=== PATIENT | male | born 1995 | race Caucasian/White ===

== ENCOUNTER 2016-05-04 15:51 | Emergency (ER) | payer BC ==
[2016-05-04 16:03] VITALS: BP 134/80; PULSE 96; RESP 17; TEMP 99.1
--- NOTE | 2016-05-04 16:29 | ED ---
General Adult HPI - General Chief complaint: ENT Stated complaint: Throat Pain Time Seen by Provider: 05/04/16 16:07 Source: patient, RN notes reviewed Mode of arrival: ambulatory Limitations: no limitations - History of Present Illness Initial comments: This is a 20-year-old male presents with a sore throat that started last Tuesday. Patient states he also had a fever of approximately 101 last Tuesday but he has never had a fever again. Patient also reports headache, mild dry cough and some sinus congestion. Patient did receive a flu shot this year. Patient denies any sick contacts. Patient states he has had mild diarrhea since last Tuesday with some improvement. Patient denies any nausea or vomiting. Patient denies any recent shortness breath, chest pain, abdominal pain, back pain, numbness, tingling, hematuria, or visual changes, or any other complaints. - Related Data Previous Rx's Medication Instructions Recorded Benzonatate [Tessalon Perles] 100 mg PO TID 3 Days 05/04/16 Allergies Allergy/AdvReac Type Severity Reaction Status Date / Time No Known Allergies Allergy Verified 05/04/16 16:20 Review of Systems ROS Statement: Those systems with pertinent positive or pertinent negative responses have been documented in the HPI. ROS Other: All systems not noted in ROS Statement are negative. Past Medical History Past Medical History: No Reported History History of Any Multi-Drug Resistant Organisms: None Reported Past Surgical History: No Surgical Hx Reported Past Psychological History: No Psychological Hx Reported Smoking Status: Never smoker Past Alcohol Use History: Occasional Past Drug Use History: None Reported General Exam - General Exam Comments Initial Comments: General: The patient is awake and alert, in no distress, and does not appear acutely ill. Eye: Pupils are equal, round and reactive to light, extra-ocular movements are intact. No nystagmus. There is normal conjunctiva bilaterally. No signs of icterus. Ears: TMs pink and pearly with intact cone of light bilaterally. Normal external ear canals Nose: Nasal turbinates pink and moist Mouth and throat: Erythema to the posterior pharynx, no tonsillar enlargement. There are moist mucous membranes and no oral lesions. Neck: The neck is supple, there is no tenderness or JVD. Cardiovascular: There is a regular rate and rhythm. No murmur, rub or gallop is appreciated. Respiratory: Lungs are clear to auscultation, respirations are non-labored, breath sounds are equal. No wheezes, stridor, rales, or rhonchi. Musculoskeletal: Normal ROM, no tenderness. Strength 5/5. Sensation intact. Radial pulses equal bilaterally 2+. Neurological: A&O x 3. CN II-XII intact, There are no obvious motor or sensory deficits. Coordination appears grossly intact. Speech is normal. Skin: Skin is warm and dry and no rashes or lesions are noted. Psychiatric: Cooperative, appropriate mood & affect, normal judgment. Limitations: no limitations Course Vital Signs 05/04/16 16:01 Temperature 99.1 F Pulse Rate 96 Respiratory 17 Rate Blood Pressure 134/80 O2 Sat by Pulse 99 Oximetry Medical Decision Making - Medical Decision Making This is a 20-year-old male presents with sore throat since last Tuesday. On physical exam patient is afebrile in the EC. There is erythema posterior pharynx show enlargement or exudates. Lungs are clear to auscultation bilaterally. A rapid strep was done and read and reviewed and came back negative. Chest x-ray was done and reviewed showing: Normal chest. Reported by Dr. Marrero. I discussed viral pharyngitis with the patient. Patient is afebrile in the EC. Patient states it hurts when he coughs. Patient was given a prescription for Tessalon Perles. I discussed the patient should drink plenty fluids and use [id number] decongestants. Discussed return parameters.Discussed that patient should follow up with PCP in one to 2 days or return to the EC for any worsening symptoms or for any further concerns. Patient was receptive to this plan and patient will be discharged home. - Lab Data Lab Results 05/04/16 Range/Units 16:06 Group A Strep Rapid Negative (Negative) Disposition Clinical Impression: Viral pharyngitis Disposition: HOME SELF-CARE Condition: Good Instructions: Pharyngitis (ED) Additional Instructions: Please use [id number] decongestants. Please use Tessalon Perles as prescribed. Please be sure to drink plenty of fluids. Please use Tylenol or Motrin for any pain or fever symptoms. Please follow-up with family doctor in the next 2 days of symptoms have not improved. Please return to emergency room if the symptoms increase or worsen or for any other concerns. Prescriptions: Benzonatate [Tessalon Perles] 100 mg PO TID 3 Days Referrals: Prosper Lopez MD [Primary Care Provider] - 1-2 days
--- NOTE | 2016-05-04 17:28 | XR ---
EXAMINATION TYPE: XR chest 2V DATE OF EXAM: 05/04/2016 5:15 PM COMPARISON: NONE HISTORY: Sore throat TECHNIQUE: Frontal and lateral views of the chest are obtained. FINDINGS: Heart and mediastinum are normal. Lungs are clear. Diaphragm is normal. Bony thorax and so ft tissues appear normal. IMPRESSION: Normal chest.
== END 2016-05-04 17:30 | disposition home or self-care (01) ==
LOC: EC 15:51
DX: J02.9 Acute pharyngitis, unspecified (principal)
CPT/HCPCS: 71020; 87081; 87430; 99283

== ENCOUNTER 2017-10-28 23:26 | Emergency (ER) | payer BC ==
[2017-10-28 23:30] VITALS: BP 134/65; PULSE 89; RESP 18; TEMP 98
[2017-10-28] MEDS ORDERED: PROPARACAINE 0.5% OPHTH DROPS 15 ML BTL BOTH EYES STA (23:49)
[2017-10-29] MEDS ORDERED: ERYTHROMYCIN 5 MG/GM OPHTH OINT 3.5 GM TUBE LEFT EYE STA (00:10)
--- NOTE | 2017-10-29 00:12 | ED ---
General Adult HPI - General Source: patient, RN notes reviewed Mode of arrival: ambulatory Limitations: no limitations <Mauro Rizo P - Last Filed: 10/29/17 01:35> <Jeni Mcqueen P - Last Filed: 10/30/17 05:04> - General Chief complaint: Eye Problems Stated complaint: Eye injury Time Seen by Provider: 10/28/17 23:42 - History of Present Illness Initial comments: 22-year-old male presents to the emergency department for a chief complaint of left eye pain 2 hours. Patient states he was cutting wood to clear a path for hunting when a branch hit him in the left eye. Patient denies any pain around the eye but states it feels like it is scratched her as if there is a foreign body. Patient states his tetanus is up to date. Patient denies any visual changes. Patient denies any pain with movement of the eye.Patient has no other complaints at this time including shortness of breath, chest pain, abdominal pain, nausea or vomiting, headache, or visual changes. (Mauro Rizo) - Related Data Previous Rx's Medication Instructions Recorded Ciprofloxacin Ophth Oint [Ciloxan 1 applic BOTH EYES Q8H 7 Days gm 10/29/17 0.3% Ophth Oint] Erythromycin Ophth Oint [Romycin 1 applic LEFT EYE QID 7 Days gm 10/29/17 Ophth Oint] Allergies Allergy/AdvReac Type Severity Reaction Status Date / Time No Known Allergies Allergy Verified 10/28/17 23:46 Review of Systems ROS Other: All systems not noted in ROS Statement are negative. <Mauro Rizo P - Last Filed: 10/29/17 01:35> ROS Other: All systems not noted in ROS Statement are negative. <Jeni Mcqueen P - Last Filed: 10/30/17 05:04> ROS Statement: Those systems with pertinent positive or pertinent negative responses have been documented in the HPI. Past Medical History Past Medical History: No Reported History History of Any Multi-Drug Resistant Organisms: None Reported Past Surgical History: No Surgical Hx Reported Past Psychological History: No Psychological Hx Reported Smoking Status: Light tobacco smoker Past Alcohol Use History: Occasional Past Drug Use History: None Reported <Mauro Rizo P - Last Filed: 10/29/17 01:35> General Exam Limitations: no limitations General appearance: alert, in no apparent distress Head exam: Present: atraumatic, normocephalic, normal inspection Eye exam: Present: PERRL, EOMI (No pain with movement), conjunctival injection ( Conjunctiva erythematous on the left eye), other (There is a small corneal abrasion at 5:00 in the left cornea visualized with Wood's lamp and fluorescein stain. No foreign bodies noted in the cornea. Negative Israel sign. Both eyelids were flipped and no foreign bodies noted within the eyelids.). Absent: scleral icterus, nystagmus, periorbital swelling, periorbital tenderness (No tenderness to the orbit, no signs of external trauma such as ecchymosis or step- off) Expanded Eyelids: Normal Inspection: Bilateral Pupils: Regular, Round: Bilateral Sclera/Conjunctival: Normal Inspection: Right, Injection: Left (erythematous) Anterior chamber: Normal Inspection: Bilateral <Mauro Rizo P - Last Filed: 10/29/17 01:35> Vital Signs 10/28/17 23:28 Temperature 98 F Pulse Rate 89 Respiratory 18 Rate Blood Pressure 134/65 O2 Sat by Pulse 99 Oximetry Medical Decision Making <Mauro Rizo P - Last Filed: 10/29/17 01:35> <Jeni Mcqueen P - Last Filed: 10/30/17 05:04> - Medical Decision Making 22-year-old male with left eye pain after a branch hit him in the eye when he was cutting wood 2 hours ago. On exam no pain with extraocular movements. No tenderness to the orbit. Conjunctiva does appear erythematous on the left side. Eye was numbed with proparacaine and stained with fluorescein stain. Wood's lamp was used to visualize the cornea. There is a small corneal abrasion noted at 5:00 in the left cornea. No evidence of foreign body with thorough inspection of the cornea and eyelids. Tetanus is up-to-date. Patient will be treated with Cipro eyedrops as he was hit with an organic object to cover pseudomonas. Patient will follow up with ophthalmology in one to 2 days. He will return to the emergency department if he has any worsening symptoms. Eye drop was switched to Cipro after erythromycin ordered from pharmacy. Patient aware to use erythromycin tonight and then swich to Cipro tomorrow after filling prescription. Aware to follow instructions on prescription. ( Mauro Rizo) I was available for consultation in the emergency department. The history and physical exam were done by the midlevel provider. I was consulted for this patient's care. I reviewed the case with the midlevel provider and based on their presentation of the patient, I agree with the assessment, medical decision making and plan of care as documented. (Jeni Mcqueen) Disposition Is patient prescribed a controlled substance at d/c from ED?: No Time of Disposition: 00:11 <Mauro Rizo - Last Filed: 10/29/17 01:35> <Jeni Mcqueen - Last Filed: 10/30/17 05:04> Clinical Impression: Corneal abrasion, left Disposition: HOME SELF-CARE Condition: Good Instructions: Corneal Abrasion (ED) Additional Instructions: Please apply ointment every 4-6 hours to the left eye for 7 days. Please follow -up with ophthalmology in one to 2 days. Return if you have any worsening symptoms. Prescriptions: Ciprofloxacin Ophth Oint [Ciloxan 0.3% Ophth Oint] 1 applic BOTH EYES Q8H 7 Days gm Erythromycin Ophth Oint [Romycin Ophth Oint] 1 applic LEFT EYE QID 7 Days gm Referrals: Prosper Lopez MD [Primary Care Provider] - 1-2 days Mohamud Finn MD [STAFF PHYSICIAN] - 1-2 days
== END 2017-10-29 00:38 | disposition home or self-care (01) ==
LOC: EC 23:26
DX: S05.02XA Injury of conjunctiva and corneal abrasion without foreign body, left eye, initial encounter (principal); F17.200 Nicotine dependence, unspecified, uncomplicated; W22.8XXA Striking against or struck by other objects, initial encounter; Y93.89 Activity, other specified; Y92.89 Other specified places as the place of occurrence of the external cause
CPT/HCPCS: 99283

== ENCOUNTER 2023-03-18 20:30 | Emergency (ER) | payer BC ==
[2023-03-18 20:58] VITALS: TEMP 98
[2023-03-18] MEDS ORDERED: HYDROmorphone 1 MG/ML 1 ML SYRINGE IM STA (21:23)
--- NOTE | 2023-03-18 21:30 | ED ---
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 Patient stated the headache after fall follow-up for discharge of severe left hip pain and inability to ablate. Patient did not his head has no other complaints of pain just in the left hip patient's pain is severe (Louie Dallas) - Related Data Previous Rx's Medication Instructions Recorded Ciprofloxacin Ophth Oint [Ciloxan 1 applic BOTH EYES Q8H 7 Days gm 10/29/17 0.3% Ophth Oint] Erythromycin Ophth Oint [Romycin 1 applic LEFT EYE QID 7 Days gm 10/29/17 Ophth Oint] Lidocaine 5% Patch [Lidoderm 5% 1 patch TOPICAL DAILY PRN 14 Days 03/19/23 Patch] #14 patch Allergies Allergy/AdvReac Type Severity Reaction Status Date / Time No Known Allergies Allergy Verified 03/18/23 20:47 Review of Systems ROS Other: All systems not noted in ROS Statement are negative. <Louie Dallas - Last Filed: 03/18/23 23:21> ROS Other: All systems not noted in ROS Statement are negative. <bS Medina - Last Filed: 03/19/23 00:21> ROS Statement: Those systems with pertinent positive or pertinent negative responses have been documented in the HPI. Past Medical History Past Medical History: No Reported History History of Any Multi-Drug Resistant Organisms: None Reported Past Surgical History: No Surgical Hx Reported Past Psychological History: No Psychological Hx Reported Smoking Status: Current every day smoker, Vaper Past Alcohol Use History: Occasional Past Drug Use History: Marijuana <JasmynleanaLouie - Last Filed: 03/18/23 23:21> General Exam Limitations: no limitations General appearance: anxious Head exam: Present: atraumatic, normocephalic, normal inspection Eye exam: Present: normal appearance, PERRL, EOMI. Absent: scleral icterus, conjunctival injection, periorbital swelling ENT exam: Present: normal exam, mucous membranes moist Neck exam: Present: normal inspection. Absent: tenderness, meningismus, lymphadenopathy Respiratory exam: Present: normal lung sounds bilaterally. Absent: respiratory distress, wheezes, rales, rhonchi, stridor Cardiovascular Exam: Present: regular rate, normal rhythm, normal heart sounds. Absent: systolic murmur, diastolic murmur, rubs, gallop, clicks GI/Abdominal exam: Present: soft, normal bowel sounds. Absent: distended, tenderness, guarding, rebound, rigid Extremities exam: Present: normal inspection, full ROM, normal capillary refill. Absent: tenderness, pedal edema, joint swelling, calf tenderness Back exam: Present: normal inspection Neurological exam: Present: alert, oriented X3, CN II-XII intact Psychiatric exam: Present: normal affect, normal mood Skin exam: Present: warm, dry, intact, normal color. Absent: rash <CelenaLouie Kiki - Last Filed: 03/18/23 23:21> Course <JasmynleanaLouie - Last Filed: 03/18/23 23:21> Vital Signs 03/18/23 20:40 Temperature 98.0 F Pulse Rate 156 H Respiratory 22 Rate Blood Pressure 160/100 O2 Sat by Pulse 99 Oximetry - Reevaluation(s) Reevaluation #4: 03/18/23 23:21 Was pt. sent in by a medical professional or institution (, PA, CHAIN REPAIRER, urgent care, hospital, or shelter...) When possible be specific @ -no Did you speak to anyone other than the patient for history (EMS, parent, family, police, friend...)? What history was obtained from this source @ -no Did you review nursing and triage notes (agree or disagree)? Why? @ -agree Are old charts reviewed (outside hosp., previous admission, EMS record, old EKG, old radiological studies, urgent care reports/EKG's, shelter records)? Report findings @ -yes Differential Diagnosis (chest pain, altered mental status, abdominal pain women, abdominal pain men, vaginal bleeding, weakness, fever, dyspnea, syncope, headache, dizziness, GI bleed, back pain, seizure, CVA, palpatations, mental health, musculoskeletal)? @ -prior EKG interpreted by me (3pts min.). @ -yes X-rays interpreted by me (1pt min.). @ -yes CT interpreted by me (1pt min.). @ -no U/S interpreted by me (1pt. min.). @ -no What testing was considered but not performed or refused? (CT, X-rays, U/S, labs)? Why? @ -none What meds were considered but not given or refused? Why? @ -none Did you discuss the management of the patient with other professionals (professionals i.e. , PA, CHAIN REPAIRER, lab, RT, psych nurse, secondary social studies teacher, web communications specialist, teacher, community reinvestment act officer, comp field case manager)? Give summary @ -no Was smoking cessation discussed for >3mins.? @ -no Was critical care preformed (if so, how long)? @ -no Were there social determinants of health that impacted care today? How? (Homelessness, low income, unemployed, alcoholism, drug addiction, transportation, low edu. Level, literacy, decrease access to med. care, care home, rehab)? @ -none Was there de-escalation of care discussed even if they declined (Discuss DNR or withdrawal of care, Hospice)? DNR status @ -no What co-morbidities impacted this encounter? (DM, HTN, Smoking, COPD, CAD, Cancer, CVA, ARF, Chemo, Hep., AIDS, mental health diagnosis, sleep apnea, morbid obesity)? @ -none Was patient admitted / discharged? Hospital course, mention meds given and route, prescriptions, significant lab abnormalities, going to OR and other pertinent info. @ - Undiagnosed new problem with uncertain prognosis? @ -no Drug Therapy requiring intensive monitoring for toxicity (Heparin, Nitro, Insulin, Cardizem)? @ -no Were any procedures done? @ -no Diagnosis/symptom? @ - Acute, or Chronic, or Acute on Chronic? @ -Acute Uncomplicated (without systemic symptoms) or Complicated (systemic symptoms)? @ -Complicated Side effects of treatment? @ -no Exacerbation, Progression, or Severe Exacerbation? @ -exacerbation Poses a threat to life or bodily function? How? (Chest pain, [place], NC, pneumonia, PE, COPD, DKA, ARF, appy, cholecystitis, CVA, Diverticulitis, Homicidal, Suicidal, threat to staff... and all critical care pts) @ -yes (Louie Dallas) Medical Decision Making <Sb Medina - Last Filed: 03/19/23 00:21> - Medical Decision Making Patient signed out to me pending results of CT imaging. Briefly, patient is a 27-year-old male presents complaining of left hip pain after a fall. Fell down multiple stairs and slid. Is having pain radiating from his left hip up to his low back. X-rays were negative however CT imaging was obtained to rule out any missed fracture. Neurovascular is intact throughout. His no other acute complaints or injuries. Denies hitting his head or loss consciousness. X-rays were interpreted by the prior physician. Pelvis CT was interpreted by myself as showing no obvious acute fracture or injury of the left hip. I did update the patient. Pain is improved. We will discharge at this time with instructions to follow up with PCP and orthopedic. He was in agreement th is plan. Already has crutches. I will provide the patient with a prescription for lidocaine patches. I instructed the patient to follow up with their PCP in the next 1-3 days. I provided contact information for follow up with orthopedics. I explained that the patient should return to the emergency department if they experience any worsening symptoms. Strict return precautions were discussed with the patient. The patient expressed understanding of these instructions. I answered all questions that the patient had. The patient was discharged home in good condition with their prescriptions and follow up information. Diagnosis/symptom? @ -Fall, left hip strain Acute, or Chronic, or Acute on Chronic? @ -Acute Uncomplicated (without systemic symptoms) or Complicated (systemic symptoms)? @ -Uncomplicated Side effects of treatment? @ -none Exacerbation, Progression, or Severe Exacerbation] @ -no Poses a threat to life or bodily function? @ -no (Sb Medina) Disposition <Louie Dallas - Last Filed: 03/18/23 23:21> Is patient prescribed a controlled substance at d/c from ED?: No Time of Disposition: 23:59 <Sb Medina - Last Filed: 03/19/23 00:21> Clinical Impression: Fall, Strain of hip Disposition: HOME SELF-CARE Condition: Good Instructions (If sedation given, give patient instructions): Muscle Strain (E D), Fall Prevention (ED) Prescriptions: Lidocaine 5% Patch [Lidoderm 5% Patch] 1 patch TOPICAL DAILY PRN 14 Days #14 patch PRN Reason: Pain Referrals: Chandu Murphy Jr, DO [Primary Care Provider] - 1-2 days Sami Breaux DO [Doctor of Osteopathic Medicine] - 1-2 days
--- NOTE | 2023-03-18 21:45 | XR ---
EXAMINATION TYPE: XR Hip LT and AP Pelvis DATE OF EXAM: 03/18/2023 COMPARISON: None HISTORY: Fall, pain TECHNIQUE: AP pelvis and two-view left hip FINDINGS: Femoral heads articular with the acetabulum. Symphysis pubis and sacroiliac joints are norm al. No acute fracture or dislocations are evident. IMPRESSION: 1. No acute osseous abnormality left hip
--- NOTE | 2023-03-18 23:54 | CT ---
EXAMINATION TYPE: CT pelvis wo con DATE OF EXAM: 03/18/2023 COMPARISON: Pelvic and left hip x-ray earlier today. CT abdomen and pelvis February 02, 2010 HISTORY: Fell down the stairs, left hip pain CT DLP: 412.5 mGycm Automated exposure control for dose reduction was used. FINDINGS: No acute fracture or dislocation in the pelvis or left hip. Os acetabuli on the right is seen. Hip celeste int spaces are symmetric and maintained. Pubic symphysis is intact. Sacroiliac joints appear within n ormal limits. No suspicious free fluid in the pelvis. Incidental normal-appearing appendix in the right lower quadr ant. Urinary bladder appears unremarkable. No suspicious groin hernia or adenopathy. Muscle bulk in t he bilateral thighs is symmetric and felt within normal limits IMPRESSION: No acute displaced fracture in the pelvis or left hip.
[2023-03-19] MEDS ORDERED: LIDOCAINE 4% PATCH TOPICAL STA (00:10)
[2023-03-19] MEDS ORDERED: HYDROmorphone 0.5 MG/0.5 ML SYRINGE IM STA (00:10)
[2023-03-19] MEDS ORDERED: ACET/COD 300 MG/30 MG STARTER PACK 6 TAB BTL PO STA (00:11)
[2023-03-19 00:46] VITALS: BP 87/54; PULSE 97; RESP 16
== END 2023-03-19 00:52 | disposition home or self-care (01) ==
LOC: EC 20:30
DX: S76.012A Strain of muscle, fascia and tendon of left hip, initial encounter (principal); F17.290 Nicotine dependence, other tobacco product, uncomplicated; F12.90 Cannabis use, unspecified, uncomplicated; W01.0XXA Fall on same level from slipping, tripping and stumbling without subsequent striking against object, initial encounter
CPT/HCPCS: 73502; 72192; 99284; 96372 ×2; J1170

== ENCOUNTER → 2023-03-24 | Outpatient (CLI) | payer BC ==
--- NOTE | 2023-03-24 14:10 | XR ---
EXAMINATION TYPE: XR sacrum coccyx DATE OF EXAM: 03/24/2023 COMPARISON: CT pelvis 6 days ago HISTORY: Fall TECHNIQUE: 2 views of sacrum and coccyx are obtained FINDINGS: No acute displaced sacral or coccygeal fracture. A few overlying left-sided pelvic phleboli ths are redemonstrated. IMPRESSION: As above.
--- NOTE | 2023-03-24 14:12 | XR ---
EXAMINATION TYPE: XR lumbar spine with bend/flex DATE OF EXAM: 03/24/2023 CLINICAL HISTORY: Acute low back pain TECHNIQUE: Frontal, lateral, flexion and extension lateral, and oblique images of the lumbar spine ar e obtained. COMPARISON: Prior x-ray July 30, 2009 FINDINGS: There are 5 lumbar type vertebral bodies redemonstrated. The lumbar spine shows stable an d satisfactory alignment without evidence of acute fracture or dislocation. Vertebral body heights an d disk space heights are within normal limits. Dynamic imaging shows no significant subluxation. The oblique images appear within normal limits. The overlying soft tissue appears unremarkable. IMPRESSION: Unremarkable study.
== END | disposition home or self-care (01) ==
LOC: RADXRMAIN 13:12
PROVIDERS: ATTEND Family Medicine
DX: M54.50 Low back pain, unspecified (principal); M53.3 Sacrococcygeal disorders, not elsewhere classified
CPT/HCPCS: 72114; 72220

== ENCOUNTER 2023-11-11 20:46 | Emergency (ER) | payer BC ==
[2023-11-11 20:52] VITALS: TEMP 97.6
--- NOTE | 2023-11-11 21:35 | ED ---
Extremity Problem HPI - General Chief complaint: Extremity Problem,Nontraumatic Stated complaint: R Leg Pain-Sent from urgentcare Time Seen by Provider: 11/11/23 20:54 Source: patient, RN notes reviewed Mode of arrival: wheelchair Limitations: no limitations - History of Present Illness Initial comments: This is a 28-year-old male who presents to the emergency department for right leg pain. States that over the last 5 days he has had increasing pain to the right calf. He has noticed it swell up on him occasionally and become more red. Pain is worse with movement and to the touch. States that the back of his leg also feels fairly firm. Denies any injuries aside from a trip over his dog 3 weeks ago, but states that he does not know if it is related. He initially went to urgent care but was advised to come to the emergency department to have an ultrasound to evaluate for possible DVT. Denies any history of blood clots. Denies any chest pain or shortness of breath. MD Complaint: extremity pain, extremity swelling - Related Data Previous Rx's Medication Instructions Recorded Ciprofloxacin Ophth Oint [Ciloxan 1 applic BOTH EYES Q8H 7 Days gm 10/29/17 0.3% Ophth Oint] Erythromycin Ophth Oint [Romycin 1 applic LEFT EYE QID 7 Days gm 10/29/17 Ophth Oint] Lidocaine 5% Patch [Lidoderm 5% 1 patch TOPICAL DAILY PRN 14 Days 03/19/23 Patch] #14 patch Allergies Allergy/AdvReac Type Severity Reaction Status Date / Time No Known Allergies Allergy Verified 11/11/23 20:51 Review of Systems ROS Statement: Those systems with pertinent positive or pertinent negative responses have been documented in the HPI. ROS Other: All systems not noted in ROS Statement are negative. Past Medical History Past Medical History: No Reported History History of Any Multi-Drug Resistant Organisms: None Reported Past Surgical History: No Surgical Hx Reported Past Psychological History: No Psychological Hx Reported Smoking Status: Current every day smoker, Vaper Past Alcohol Use History: Daily, Occasional Past Drug Use History: Marijuana General Exam Limitations: no limitations General appearance: alert, in no apparent distress Head exam: Present: atraumatic, normocephalic, normal inspection Respiratory exam: Present: normal lung sounds bilaterally. Absent: respiratory distress, wheezes, rales, rhonchi, stridor Cardiovascular Exam: Present: regular rate, normal rhythm, normal heart sounds. Absent: systolic murmur, diastolic murmur, rubs, gallop, clicks Extremities exam: Present: other (Tenderness, swelling, and firmness to the right calf. No erythema. 2+ DP and PT pulses.) Neurological exam: Present: alert, oriented X3, CN II-XII intact Psychiatric exam: Present: normal affect, normal mood Skin exam: Present: warm, dry, intact, normal color. Absent: rash Course Vital Signs 11/11/23 11/11/23 20:48 23:46 Temperature 97.6 F Pulse Rate 114 H 87 Respiratory 20 16 Rate Blood Pressure 143/101 100/62 O2 Sat by Pulse 100 97 Oximetry Medical Decision Making - Medical Decision Making This is a 28-year-old male who presents to the emergency department for right leg pain. Was pt. sent in by a medical professional or institution? @ -No Did you speak to anyone other than the patient for history? @ -No Did you review nursing and triage notes? @ -Yes, and I agree, it is accurate with regards to the patient's symptoms. Were old charts reviewed? @ -No Differential Diagnosis? @ -Differential Leg Pain: Leg fracture, leg sprain, DVT, PVD, arterial insufficiency, iliac artery aneurysm, cellulitis, compartment syndrome, tendinopathy, nerve entrapment, piriformis syndrome, osteoarthritis, rhabdomyolysis, myositis, cramping from an electrolyte imbalance, this is not meant to be an all inclusive list. EKG interpreted by me (3pts min.)? @ -Not obtained X-rays interpreted by me (1pt min.)? @ -Not obtained CT interpreted by me (1pt min.)? @ -Not obtained U/S interpreted by me (1pt. min.)? @ -Duplex ultrasound of the right lower extremity obtained. My interpretation identifies no evidence of a DVT. What testing was considered but not performed? (CT, X-rays, U/S, labs)? Why? @ -None What meds were considered but not given? Why? @ -None Did you discuss the management of the patient with other professionals? @ -No Did you reconcile home meds? @ -No Was smoking cessation discussed for >3mins.? @ -I discussed smoking cessation for greater than 3 minutes. The risk of smoking were discussed with the patient including but not limited to risks of cancer, stroke, coronary artery disease and COPD. Also discussed with patient were multiple methods of quitting smoking. Lastly we discussed the financial cost of smoking. Was critical care preformed (if so, how long)? @ -No Were there social determinants of health that impacted care today? How? (Homelessness, low income, unemployed, alcoholism, drug addiction, transportation, low edu. Level, literacy, decrease access to med. care, half-way, rehab)? @ -No Was there de-escalation of care discussed even if they declined? (Discuss DNR or withdrawal of care, Hospice)? @ -No What co-morbidities impacted this encounter? (DM, HTN, Smoking, COPD, CAD, Cancer, CVA, Hep., AIDS, mental health diagnosis, sleep apnea, morbid obesity)? @ -Smoking Was patient admitted / discharged? @ -Discharged. Duplex ultrasound of the right lower extremity obtained revealing no evidence of a DVT. He does have a superficial thrombus in the small saphenous vein. He declined the need for any pain medication in the emergency department. We discussed management with NSAIDs or aspirin, warm compresses, elevation, and compression stockings. Advised close follow-up with his PCP. Patient discharged home in stable condition. Case discussed with ED attending Dr. Dallas. Return precautions reviewed in depth, the patient is instructed to return to the emergency department with any new, worsening, or concerning symptoms. Patient verbalized understanding. Undiagnosed new problem with uncertain prognosis? @ -None Drug Therapy requiring intensive monitoring for toxicity (Heparin, Nitro, Insulin, Cardizem)? @ -None Were any procedures done? @ -None Diagnosis/symptom? @ -Superficial thrombus in the small saphenous vein Acute, or Chronic, or Acute on Chronic? @ -Acute Uncomplicated (without systemic symptoms) or Complicated (systemic symptoms)? @ -Uncomplicated Side effects of treatment? @ -None Exacerbation, Progression, or Severe Exacerbation] @ -Not applicable Poses a threat to life or bodily function? @ -No - Radiology Data Radiology results: report reviewed, image reviewed Disposition Clinical Impression: Acute superficial venous thrombosis of right lower extremity, Nicotine dependence Disposition: HOME SELF-CARE Instructions (If sedation given, give patient instructions): Superficial Thrombophlebitis (ED) Additional Instructions: Return to the emergency department with any new, worsening, or concerning symptoms. Take anti-inflammatories such as ibuprofen. You can also take aspirin. Apply warm compresses and elevate the leg when possible. You can also use compression stockings. Follow up with your primary care provider for reevaluation. Is patient prescribed a controlled substance at d/c from ED?: No Referrals: Chandu Murphy Jr, [Primary Care Provider] - 1-2 days Time of Disposition: 23:10
--- NOTE | 2023-11-11 22:57 | US ---
EXAMINATION TYPE: US venous doppler duplex LE RT DATE OF EXAM: 11/11/2023 9:55 PM COMPARISON: NONE CLINICAL INDICATION: Male, 28 years old with history of Right leg pain and swelling; Right calf pain and swelling SIDE PERFORMED: Right TECHNIQUE: The lower extremity deep venous system is examined utilizing real time linear array sonog asia with graded compression, doppler sonography and color-flow sonography. VESSELS IMAGED: Common Femoral Vein Deep Femoral Vein Greater Saphenous Vein * Femoral Vein Popliteal Vein Small Saphenous Vein * Proximal Calf Veins (* superficial vessels) Right Leg: Appears negative for DVT Thrombus seen within superficial small saphenous vein; this is reportedly in the area of pain IMPRESSION: 1. No evidence of DVT right lower extremity. 2. Superficial thrombus in the small saphenous vein.
[2023-11-11] MEDS: IBUPROFEN 600 MG STARTER PACK 4 TAB BTL PO STA (23:41)
[2023-11-11] MEDS: ACET/COD 300 MG/30 MG STARTER PACK 6 TAB BTL PO STA (23:42)
[2023-11-11 23:47] VITALS: BP 100/62; PULSE 87; RESP 16
== END 2023-11-12 00:35 | disposition home or self-care (01) ==
LOC: EC 20:46
CPT/HCPCS: 99283

== ENCOUNTER 2023-11-29 13:31 | Emergency (ER) | payer BC ==
--- NOTE | 2023-11-29 13:41 | ED ---
Extremity Problem HPI - General Source: patient, RN notes reviewed Mode of arrival: ambulatory Limitations: no limitations <Edelmira Kirby - Last Filed: 11/29/23 13:41> <Jacinda Kuhn - Last Filed: 11/29/23 16:07> - General Stated complaint: Blood Clot Time Seen by Provider: 11/29/23 13:41 - History of Present Illness Initial comments: Quick note: 28-year-old male presented to ER with a chief complaint of left calf pain. Patient states he was seen here recently and diagnosed with a superficial blood clot in his right calf. States for the past 2 days he has been endorsing left calf tenderness and pain. No current blood thinner use. No history of DVTs. (Edelmira Kirby) This is a 28-year-old female with no significant past medical history presents the emergency department chief complaint of left calf pain. Patient states that this pain has been present since Tuesday and he is concerned that he was ramona luated the emergency department a few weeks ago was diagnosed with a blood clot that is superficial in his right calf. States that this pain has been feeling similar to the left calf. Currently he is denying shortness of breath, difficulty breathing, heart palpitations. Denies current blood thinner use, denies history of DVTs. States that there is a family gene of MTHFR on his grandparents. (Jacinda Kuhn) - Related Data Home Medications Medication Instructions Recorded Confirmed Ibuprofen [Motrin] 600 mg PO Q6H PRN 11/29/23 11/29/23 Previous Rx's Medication Instructions Recorded Apixaban [Eliquis Starter Pack 5 - 10 mg PO DIRECTED 30 Days 11/29/23 (for VTE)] #1 each Apixaban [Eliquis] 5 mg PO BID #60 tab 11/29/23 Allergies Allergy/AdvReac Type Severity Reaction Status Date / Time ketorolac [From Toradol] Allergy Unknown Verified 11/29/23 15:02 Review of Systems ROS Other: All systems not noted in ROS Statement are negative. <Edelmira Kirby - Last Filed: 11/29/23 13:41> ROS Other: All systems not noted in ROS Statement are negative. <Jacinda Kuhn - Last Filed: 11/29/23 16:07> ROS Statement: Those systems with pertinent positive or pertinent negative responses have been documented in the HPI. Past Medical History Past Medical History: No Reported History History of Any Multi-Drug Resistant Organisms: None Reported Past Surgical History: No Surgical Hx Reported Past Psychological History: No Psychological Hx Reported Smoking Status: Current every day smoker, Vaper Past Alcohol Use History: Daily, Occasional Past Drug Use History: Marijuana <Edelmira Kirby - Last Filed: 11/29/23 13:41> General Exam <Edelmira Kirby - Last Filed: 11/29/23 13:41> General appearance: alert, in no apparent distress Head exam: Present: atraumatic, normocephalic, normal inspection ENT exam: Present: normal exam, mucous membranes moist Neck exam: Present: normal inspection. Absent: tenderness, meningismus, lymphadenopathy Respiratory exam: Present: normal lung sounds bilaterally. Absent: respiratory distress, wheezes, rales, rhonchi, stridor Cardiovascular Exam: Present: regular rate, normal rhythm, normal heart sounds. Absent: systolic murmur, diastolic murmur, rubs, gallop, clicks GI/Abdominal exam: Present: soft, normal bowel sounds. Absent: distended, tenderness, guarding, rebound, rigid Extremities exam: Present: normal inspection, full ROM, normal capillary refill, other (left lower extremity pain of posterior calf, mild edema, no erythema, pulses intact pedal bilateral, good color and cap refill). Absent: tenderness, pedal edema, joint swelling, calf tenderness Back exam: Present: normal inspection Skin exam: Present: warm, dry, intact, normal color. Absent: rash <Jacinda Kuhn - Last Filed: 11/29/23 16:07> - General Exam Comments Initial Comments: Visual Physical Exam Vital signs reviewed General: Well-appearing, nontoxic, no acute distress. Head: Normocephalic, atraumatic Eyes: PERRLA, EOMI ENT: Airway patent Chest: Nonlabored breathing Skin: No visual rash, normal skin tone Neuro: Alert and oriented 3 Musculoskeletal: No gross abnormalities (Edelmira Kirby) Course Vital Signs 11/29/23 13:47 Temperature 98.1 F Pulse Rate 84 Respiratory 16 Rate Blood Pressure 138/97 O2 Sat by Pulse 100 Oximetry Medical Decision Making <Edelmira Kirby - Last Filed: 11/29/23 13:41> <Jacinda Kuhn - Last Filed: 11/29/23 16:07> - Medical Decision Making I performed the quick note portion of this chart. Electronically signed by Edemlira Kirby PA-C (Edelmira Kirby) Was pt. sent in by a medical professional or institution (FE [employer], TRAFFIC CIRCUIT ENGINEER, urgent care, hospital, or snf...) When possible be specific @ -No Did you speak to anyone other than the patient for history (EMS, parent, family, police, friend...)? What history was obtained from this source @ -No Did you review nursing and triage notes (agree or disagree)? Why? @ -I reviewed and agree with nursing and triage notes Were old charts reviewed (outside hosp., previous admission, EMS record, old E KG, old radiological studies, urgent care reports/EKG's, snf records)? Report findings @ -Reviewed patient's previous emergency department visit note where all chills cleared over the right lower extremity which revealed a superficial blood clot Differential Diagnosis (chest pain, altered mental status, abdominal pain women, abdominal pain men, vaginal bleeding, weakness, fever, dyspnea, syncope, headache, dizziness, GI bleed, back pain, seizure, CVA, palpatations, mental health, musculoskeletal)? @ -Superficial venous thrombosis, deep venous thrombosis, cellulitis, venous insufficiency, this list is not all inclusive EKG interpreted by me (3pts min.). @ -None X-rays interpreted by me (1pt min.). @ -None done CT interpreted by me (1pt min.). @ -None done U/S interpreted by me (1pt. min.). @ -Duplex ultrasound of the left lower extremity reveals no evidence for DVT, internal echoes are seen within a superficial vein within the posterior knee and within the calf and superficial vessel does appear to have a thrombus up to the junction within the popliteal vein with no thrombus seen in the popliteal vein What testing was considered but not performed or refused? (CT, X-rays, U/S, labs)? Why? @ -None What meds were considered but not given or refused? Why? @ -None Did you discuss the management of the patient with other professionals (professionals i.e. [employer], TRAFFIC CIRCUIT ENGINEER, lab, RT, psych nurse, protective services social worker, physical therapy assistant, teacher, eeo officer, telephonic nurse case manager)? Give summary @ -i spoke with materials engineering technician in regard to the patient's US report, patient is noted to have a superficial thrombus that goes right up to the deep system at the popliteal vein. Was smoking cessation discussed for >3mins.? @ -No Was critical care preformed (if so, how long)? @ -No Were there social determinants of health that impacted care today? How? (Homelessness, low income, unemployed, alcoholism, drug addiction, transportation, low edu. Level, literacy, decrease access to med. care, fdc, rehab)? @ -No Was there de-escalation of care discussed even if they declined (Discuss DNR or withdrawal of care, Hospice)? DNR status @ -No What co-morbidities impacted this encounter? (DM, HTN, Smoking, COPD, CAD, Cancer, CVA, ARF, Chemo, Hep., AIDS, mental health diagnosis, sleep apnea, morbid obesity)? @ -None Was patient admitted / discharged? Hospital course, mention meds given and route, prescriptions, significant lab abnormalities, going to OR and other pertinent info. @ -Discharge. 28-year-old male with left calf pain. Patient was originally evaluated as a quick note ultrasound is ordered. In my evaluation the patient is noted to have mild pain in the left calf to palpation, also's are intact. Ultrasound is remarkable for superficial venous thrombosis however the superficial thrombus is located very close near to the deep venous system. Patient will be empirically treated with anticoagulation via Eliquis and sent a prescription for this medication. Patient provided with additional dose the emergency department and instructed to follow-up with his primary care provider outpatient. All questions answered at bedside and strict return prior discussed with the patient is verbalized understanding. Case discussed with Dr. Dallas Undiagnosed new problem with uncertain prognosis? @ -No Drug Therapy requiring intensive monitoring for toxicity (Heparin, Nitro, Insulin, Cardizem)? @ -No Were any procedures done? @ -No Diagnosis/symptom? @ -superficial venous thrombosis near deep system Acute, or Chronic, or Acute on Chronic? @ -acute Uncomplicated (without systemic symptoms) or Complicated (systemic symptoms)? @ -uncomplicated Side effects of treatment? @ -No Exacerbation, Progression, or Severe Exacerbation? @ -No Poses a threat to life or bodily function? How? (Chest pain, [place], MD, pneumonia, PE, COPD, DKA, ARF, appy, cholecystitis, CVA, Diverticulitis, Homicidal, Suicidal, threat to staff... and all critical care pts) @ -No (Jacinda Kuhn) Disposition <Eedlmira Kirby - Last Filed: 11/29/23 13:41> Is patient prescribed a controlled substance at d/c from ED?: No Time of Disposition: 15:40 <Jacinda Kuhn - Last Filed: 11/29/23 16:07> Clinical Impression: Superficial vein thrombosis Disposition: HOME SELF-CARE Condition: Good Instructions (If sedation given, give patient instructions): Apixaban (By mouth), Superficial Thrombophlebitis (ED) Additional Instructions: Return to the emergency department any worsening symptoms. Continue to wear compression stockings. Take Eliquis as prescribed which includes 10 mg 2 times a day for the first week and 5 mg 2 times a day for the next 30 days. Prescriptions: Apixaban [Eliquis] 5 mg PO BID #60 tab Apixaban [Eliquis Starter Pack (for VTE)] 5 - 10 mg PO DIRECTED 30 Days #1 each Referrals: Chandu Murphy Jr, DO [Primary Care Provider] - 1-2 days
[2023-11-29 13:49] VITALS: RESP 16; TEMP 98.1
--- NOTE | 2023-11-29 14:46 | US ---
EXAMINATION TYPE: US venous doppler duplex LE LT DATE OF EXAM: 11/29/2023 2:33 PM COMPARISON: NONE CLINICAL INDICATION: Male, 28 years old with history of calf pain; Calf pain x 2 days. Hx SVT in righ t leg on exam from 11/11/23. SIDE PERFORMED: Left TECHNIQUE: The lower extremity deep venous system is examined utilizing real time linear array sonog asia with graded compression, doppler sonography and color-flow sonography. VESSELS IMAGED: Common Femoral Vein Deep Femoral Vein Greater Saphenous Vein * Femoral Vein Popliteal Vein Small Saphenous Vein * Proximal Calf Veins (* superficial vessels) Left Leg: No evidence of DVT. *Internal echoes seen within a superficial vein within posterior knee and within calf. Vessel appears noncompressible and does not show color flow. This superficial vessel does appear to have thrombus up to the junction with the popliteal vein. No thrombus seen in poplit eal vein. IMPRESSION: As above [facility], , 11/29/2023 2:44 PM
[2023-11-29] MEDS: APIXABAN 5 MG TAB PO STA (15:58)
[2023-11-29 16:06] VITALS: BP 130/79; PULSE 80
== END 2023-11-29 17:01 | disposition home or self-care (01) ==
LOC: EC 13:31
DX: I82.891 Chronic embolism and thrombosis of other specified veins
CPT/HCPCS: 99283

== ENCOUNTER 2023-11-30 14:25 | Inpatient (IN) | payer BC ==
--- NOTE | 2023-11-30 14:46 | ED ---
Syncope HPI - General Chief Complaint: Syncope Stated Complaint: DVT,syncope Time Seen by Provider: 11/30/23 14:35 Source: patient, RN notes reviewed, old records reviewed Mode of arrival: ambulatory Limitations: no limitations - History of Present Illness Initial Comments: This is a 28-year-old male to the ER for evaluation today. Patient coming in [facility] significant syncopal event both today and yesterday, patient recent diagnosis of DVT started on Eliquis, patient having occasional chest pain with no significant shortness of breath MD Complaint: loss of consciousness, collapsed, other (Patient has passed out twice in less than 24 hours) -: hour(s) Prodromal Symptoms: lightheaded, chest pain -: second(s) Witnessed: no Injuries Sustained Associated with Event: None Current Symptoms: lightheaded, chest pain, weakness History: previous syncopal episode (Yesterday) Context: at rest, during exertion, getting out of bed, standing up Treatments Prior to Arrival: none - Related Data Previous Rx's Medication Instructions Recorded Apixaban [Eliquis] 5 mg PO BID #60 tab 11/29/23 Apixaban Initiation Dose--VTE 10 mg PO BID tab 12/02/23 [Eliquis Initiation Dosing for VTE Treatment] Famotidine [Pepcid] 20 mg PO DAILY #30 tablet 12/02/23 Magnesium Oxide [Mag-Ox] 400 mg PO BID #60 tablet 12/02/23 Allergies Allergy/AdvReac Type Severity Reaction Status Date / Time ketorolac [From Toradol] Allergy Unknown Verified 11/30/23 16:01 Review of Systems ROS Statement: Those systems with pertinent positive or pertinent negative responses have been documented in the HPI. ROS Other: All systems not noted in ROS Statement are negative. Past Medical History Past Medical History: Deep Vein Thrombosis (DVT) History of Any Multi-Drug Resistant Organisms: None Reported Past Surgical History: No Surgical Hx Reported Past Psychological History: No Psychological Hx Reported Smoking Status: Current every day smoker, Vaper Past Alcohol Use History: Daily, Occasional Past Drug Use History: Marijuana General Exam - General Exam Comments Initial Comments: Bilateral leg edema Limitations: no limitations General appearance: alert, in no apparent distress Head exam: Present: atraumatic, normocephalic, normal inspection Eye exam: Present: normal appearance, PERRL, EOMI. Absent: scleral icterus, conjunctival injection, periorbital swelling ENT exam: Present: normal exam, mucous membranes moist Neck exam: Present: normal inspection. Absent: tenderness, meningismus, lymphadenopathy Respiratory exam: Present: normal lung sounds bilaterally. Absent: respiratory distress, wheezes, rales, rhonchi, stridor Cardiovascular Exam: Present: regular rate, normal rhythm, normal heart sounds. Absent: systolic murmur, diastolic murmur, rubs, gallop, clicks GI/Abdominal exam: Present: soft, normal bowel sounds. Absent: distended, tenderness, guarding, rebound, rigid Extremities exam: Present: normal inspection, full ROM, normal capillary refill. Absent: tenderness, pedal edema, joint swelling, calf tenderness Back exam: Present: normal inspection Neurological exam: Present: alert, oriented X3, CN II-XII intact Psychiatric exam: Present: normal affect, normal mood Skin exam: Present: warm, dry, intact, normal color. Absent: rash Course Vital Signs 11/30/23 11/30/23 11/30/23 14:31 15:04 16:00 Temperature 99.4 F Pulse Rate 114 H 108 H 104 H Respiratory 20 20 22 Rate Blood Pressure 137/97 139/93 137/94 O2 Sat by Pulse 99 99 99 Oximetry 11/30/23 11/30/23 11/30/23 17:00 18:00 20:00 Temperature Pulse Rate 118 H 120 H 101 H Respiratory 24 24 18 Rate Blood Pressure 138/97 140/90 146/87 O2 Sat by Pulse 98 96 96 Oximetry 11/30/23 11/30/23 12/01/23 21:25 23:15 02:34 Temperature 98.8 F Pulse Rate 112 H 111 H 116 H Respiratory 18 18 Rate Blood Pressure 129/95 130/81 130/76 O2 Sat by Pulse 97 97 96 Oximetry 12/01/23 12/01/23 12/01/23 05:41 09:00 10:00 Temperature Pulse Rate 115 H 111 H 114 H Respiratory 18 18 24 Rate Blood Pressure 137/88 142/84 142/84 O2 Sat by Pulse 97 98 97 Oximetry 12/01/23 15:00 Temperature Pulse Rate 114 H Respiratory 18 Rate Blood Pressure 132/89 O2 Sat by Pulse 97 Oximetry - Reevaluation(s) Reevaluation #1: 11/30/23 18:13 Medical records reviewed Reevaluation #2: 11/30/23 18:14 Patient has no recurrent syncope here in the ER Reevaluation #3: 11/30/23 18:14 Patient informed of results and questions answered Reevaluation #4: Was pt. sent in by a medical professional or institution (FE Minor, BARREL RIB MATTING MACHINE OPERATOR, urgent care, hospital, or correction...) When possible be specific @ -no Did you speak to anyone other than the patient for history (EMS, parent, family, police, friend...)? What history was obtained from this source @ -no Did you review nursing and triage notes (agree or disagree)? Why? @ -agree Are old charts reviewed (outside hosp., previous admission, EMS record, old EKG, old radiological studies, urgent care reports/EKG's, correction records)? Report findings @ -yes Differential Diagnosis (chest pain, altered mental status, abdominal pain women, abdominal pain men, vaginal bleeding, weakness, fever, dyspnea, syncope, headache, dizziness, GI bleed, back pain, seizure, CVA, palpatations, mental health, musculoskeletal)? @ -prior EKG interpreted by me (3pts min.). @ -yes X-rays interpreted by me (1pt min.). @ -no CT interpreted by me (1pt min.). @ -Yes positive for PE U/S interpreted by me (1pt. min.). @ -Yes positive for DVT What testing was considered but not performed or refused? (CT, X-rays, U/S, labs)? Why? @ -none What meds were considered but not given or refused? Why? @ -none Did you discuss the management of the patient with other professionals ( professionals i.e. FE Minor, BARREL RIB MATTING MACHINE OPERATOR, lab, RT, psych nurse, social media content manager, chart collector, teacher, v/stol landing signal officer, onsite case manager)? Give summary @ -no Was smoking cessation discussed for >3mins.? @ -no Was critical care preformed (if so, how long)? @ -yes31 Were there social determinants of health that impacted care today? How? (Homelessness, low income, unemployed, alcoholism, drug addiction, transportation, low edu. Level, literacy, decrease access to med. care, usp, rehab)? @ -none Was there de-escalation of care discussed even if they declined (Discuss DNR or withdrawal of care, Hospice)? DNR status @ -no What co-morbidities impacted this encounter? (DM, HTN, Smoking, COPD, CAD, Cancer, CVA, ARF, Chemo, Hep., AIDS, mental health diagnosis, sleep apnea, morbid obesity)? @ -none Was patient admitted / discharged? Hospital course, mention meds given and route, prescriptions, significant lab abnormalities, going to OR and other pertinent info. @ - 28 male will be admitted for syncope x 2, recent diagnosis of DVT inconclusive CT for PE and significant pneumonia found with effusion, suspect PE with syncope Admitted Undiagnosed new problem with uncertain prognosis? @ -no Drug Therapy requiring intensive monitoring for toxicity (Heparin, Nitro, Insulin, Cardizem)? @ -no Were any procedures done? @ -no Diagnosis/symptom? @ -DVT, PE, syncope yes positive PE Acute, or Chronic, or Acute on Chronic? @ -Acute Uncomplicated (without systemic symptoms) or Complicated (systemic symptoms)? @ -Complicated Side effects of treatment? @ -no Exacerbation, Progression, or Severe Exacerbation? @ -exacerbation Poses a threat to life or bodily function? How? (Chest pain, [place], [place], pneumonia, PE, COPD, DKA, ARF, appy, cholecystitis, CVA, Diverticulitis, Homicidal, Suicidal, threat to staff... and all critical care pts) @ -yes with syncope Reevaluation #5: Differential Syncope: Valvular disease, hypertrophic cardiomyopathy, pulmonary embolism, tamponade, tachycardia, bradycardia, [place], hypovolemia, hemorrhage, dissection, anemia, intracranial hemorrhage, seizure, hypoglycemia, carbon monoxide poisoning, this is not meant to be an all-inclusive list. - Consultations Consultation #1: Spoke with Dr. Murphy who agrees to admit this patient EKG Findings - EKG Comments: EKG Findings:: EKG sinus tachycardia 116 ND 124 QRS 92 QTc 395 - EKG Results: EKG: interpreted by DEVORAD Medical Decision Making - Medical Decision Making 28 male will be admitted for syncope x 2, recent diagnosis of DVT inconclusive CT for PE and significant pneumonia found with effusion, suspect PE with syncope - Lab Data Result diagrams: 12/02/23 08:20 12/02/23 08:20 Lab Results 11/30/23 11/30/23 11/30/23 Range/Units 14:59 14:59 14:59 WBC 10.0 (3.8-10.6) k/uL RBC 3.83 L (4.30-5.90) m/uL Hgb 10.8 L (13.0-17.5) gm/dL Hct 34.8 L (39.0-53.0) % MCV 90.9 (80.0-100.0) fL MCH 28.2 (25.0-35.0) pg MCHC 31.0 (31.0-37.0) g/dL RDW 15.8 H (11.5-15.5) % Plt Count 451 H (150-450) k/uL MPV 7.6 Neutrophils % 72 % Lymphocytes % 20 % Monocytes % 6 % Eosinophils % 0 % Basophils % 0 % Neutrophils # 7.1 (1.3-7.7) k/uL Lymphocytes # 2.0 (1.0-4.8) k/uL Monocytes # 0.6 (0-1.0) k/uL Eosinophils # 0.0 (0-0.7) k/uL Basophils # 0.0 (0-0.2) k/uL Hypochromasia Slight PT 12.6 H (10.0-12.5) sec INR 1.2 H (<1.2) APTT 30.1 H (22.0-30.0) sec D-Dimer 4.95 H (<0.60) mg/L FEU Sodium 140 (137-145) mmol/L Potassium 3.1 L (3.5-5.1) mmol/L Chloride 106 (98-107) mmol/L Carbon Dioxide 25 (22-30) mmol/L Anion Gap 9 mmol/L BUN <2 L (9-20) mg/dL Creatinine 0.75 (0.66-1.25) mg/dL Est GFR (CKD-EPI)AfAm >90 (>60 ml/min/1.73 sqM) Est GFR (CKD-EPI)NonAf >90 (>60 ml/min/1.73 sqM) Glucose 83 (74-99) mg/dL Calcium 7.4 L (8.4-10.2) mg/dL Magnesium 1.3 L (1.6-2.3) mg/dL Total Bilirubin 0.8 (0.2-1.3) mg/dL AST 50 (17-59) U/L ALT 31 (4-49) U/L Alkaline Phosphatase 140 H (38-126) U/L Troponin I (0.000-0.034) ng/mL NT-Pro-B Natriuret Pep pg/mL Total Protein 6.5 (6.3-8.2) g/dL Albumin 2.7 L (3.5-5.0) g/dL 11/30/23 11/30/23 Range/Units 14:59 14:59 WBC (3.8-10.6) k/uL RBC (4.30-5.90) m/uL Hgb (13.0-17.5) gm/dL Hct (39.0-53.0) % MCV (80.0-100.0) fL MCH (25.0-35.0) pg MCHC (31.0-37.0) g/dL RDW (11.5-15.5) % Plt Count (150-450) k/uL MPV Neutrophils % % Lymphocytes % % Monocytes % % Eosinophils % % Basophils % % Neutrophils # (1.3-7.7) k/uL Lymphocytes # (1.0-4.8) k/uL Monocytes # (0-1.0) k/uL Eosinophils # (0-0.7) k/uL Basophils # (0-0.2) k/uL Hypochromasia PT (10.0-12.5) sec INR (<1.2) APTT (22.0-30.0) sec D-Dimer (<0.60) mg/L FEU Sodium (137-145) mmol/L Potassium (3.5-5.1) mmol/L Chloride (98-107) mmol/L Carbon Dioxide (22-30) mmol/L Anion Gap mmol/L BUN (9-20) mg/dL Creatinine (0.66-1.25) mg/dL Est GFR (CKD-EPI)AfAm (>60 ml/min/1.73 sqM) Est GFR (CKD-EPI)NonAf (>60 ml/min/1.73 sqM) Glucose (74-99) mg/dL Calcium (8.4-10.2) mg/dL Magnesium (1.6-2.3) mg/dL Total Bilirubin (0.2-1.3) mg/dL AST (17-59) U/L ALT (4-49) U/L Alkaline Phosphatase (38-126) U/L Troponin I <0.012 (0.000-0.034) ng/mL NT-Pro-B Natriuret Pep 46 pg/mL Total Protein (6.3-8.2) g/dL Albumin (3.5-5.0) g/dL - EKG Data -: EKG Interpreted by Me - Radiology Data Radiology results: report reviewed (CTA chest negative for conclusive PE does have pleural effusion and possible spleen pneumonia, likely PE, ultrasound bilateral lower extremities positive DVT, CT brain negative for acute disease), image reviewed Critical Care Time Critical Care Time: Yes Total Critical Care Time: 31 Disposition Clinical Impression: Acute superficial venous thrombosis of right lower extremity, Superficial vein thrombosis, Syncope due to orthostatic hypotension, Vasovagal syncope, Dehydration, Syncope, Tachycardia, Pleural effusion, Pulmonary edema, Pneumonia Disposition: HOME SELF-CARE Condition: Stable Is patient prescribed a controlled substance at d/c from ED?: No Time of Disposition: 18:15
[2023-11-30] MEDS: SODIUM CHLORIDE 0.9% 1,000 ML IV STA ×2 (15:02→15:03)
--- NOTE | 2023-11-30 16:00 | CT ---
EXAMINATION TYPE: CT brain wo con CT DLP: 1125.4 mGycm, Automated exposure control for dose reduction was used. DATE OF EXAM: 11/30/2023 3:54 PM COMPARISON: None. CLINICAL INDICATION: Male, 28 years old with history of syncope TECHNIQUE: Brain: Axial CT images of the brain were obtained with coronal and sagittal reformats created and rev iewed. Contrast used: None. Oral contrast used: None. FINDINGS: Brain: Extra-axial spaces: No abnormal extra-axial fluid collections. Ventricular system: Within normal limits Cerebral parenchyma: No acute intraparenchymal hemorrhage or mass effect. The iyer-white junction is well differentiated. Cerebellum: Unremarkable. Mass effect: No evidence of midline shift. Intracranial vasculature: unremarkable Soft tissues: Normal. Calvarium/osseous structures: No depressed skull fracture. Paranasal sinuses and mastoid air cells: Mild scattered paranasal sinus disease. Visualized orbits: Orbital contents are intact. IMPRESSION: No acute intracranial process. [facility], , 11/30/2023 3:58 PM
--- NOTE | 2023-11-30 16:07 | CT ---
EXAMINATION TYPE: CT angio chest CT DLP: 976.6 mGycm, Automated exposure control for dose reduction was used. DATE OF EXAM: 11/30/2023 3:54 PM COMPARISON: Chest radiograph from same day. 11/14/2009 CLINICAL INDICATION: Male, 28 years old with history of PE; syncope, DVT TECHNIQUE/CONTRAST: CTA scan of the thorax is performed with IV Contrast, patient injected with 100 mL of Isovue 370, MIP images are created and reviewed these are created on a separate workstation.. FINDINGS: Pulmonary Artery: Nearly nondiagnostic evaluation of the pulmonary vasculature due to bolus timing. Lungs/Pleura: Wedge-shaped area of the left lower lung possibly representing atelectasis versus pulmo nary infarct versus airspace disease. No evidence of right pleural effusion or pneumothorax. Trace le ft pleural effusion. Airway: Large airways are patent. Heart: Heart is within normal limits for size. Vasculature: No evidence of aortic aneurysm. 4 vessel aortic arch. Mediastinum: No gross evidence of adenopathy. Musculoskeletal: No acute osseous abnormalities Soft Tissues/lymph nodes: Unremarkable. Lower neck: No significant findings. Upper Abdomen: Diffuse low-attenuation to the liver parenchyma. 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 IMPRESSION: 1. Nearly nondiagnostic exam centrally and Nondiagnostic evaluation of the small pulmonary arteries. Left lower lung wedge-shaped opacities possibly representing pneumonia versus pulmonary infarct if t he patient does have pulmonary emboli which cannot be evaluated due to bolus timing. Correlate clinic ally of high d-dimer consider repeat evaluation. 2. Trace left pleural effusion. 3. 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 Similar to 2010 study 4. Severe hepatic steatosis. Follow up recommendations for incidental pulmonary nodules, if there are any, are per [employer] [place] [employer] [employer] or [employer]. https://radiopaedia.org/articles/zunsmluaql-pjcfxct-jrzagdkvp-odqynn-glaatijjzokjjby-[email or web address]?lang=us [facility], Workstation: [id number], 11/30/2023 4:04 PM
[2023-11-30 16:21] LABS: Basophils % (A) 0 %; Eosinophils % (A) 0 %; HCT 34.8 % (39.0-53.0); HGB 10.8 gm/dL (13.0-17.5); Hypochromasia Slight; Lymphocytes % (A) 20 %; MCH 28.2 pg (25.0-35.0); MCV 90.9 fL (80.0-100.0); Mean Platelet Volume 7.6; Monocytes # (A) 0.6 k/uL (0-1.0); Monocytes % (A) 6 %; Neutrophils # (A) 7.1 k/uL (1.3-7.7); Neutrophils % (A) 72 %; Platelet Count 451 k/uL (150-450); RBC 3.83 m/uL (4.30-5.90); RDW 15.8 % (11.5-15.5)
[2023-11-30] MEDS ORDERED: HEPARIN SODIUM 1,000 UN/ML (10ML VL) IV PRN (16:25)
[2023-11-30 16:36] LABS: ALT 31 U/L (4-49); AST 50 U/L (17-59); African American GFR (CKD) >90 (>60 ml/min/1.73 sqM); Albumin 2.7 g/dL (3.5-5.0); Alkaline Phosphatase 140 U/L (38-126); Anion Gap 9 mmol/L; Blood Urea Nitrogen <2 mg/dL (9-20); Calcium 7.4 mg/dL (8.4-10.2); Carbon Dioxide 25 mmol/L (22-30); Chloride 106 mmol/L (98-107); Glucose 83 mg/dL (74-99); Magnesium 1.3 mg/dL (1.6-2.3); Non-African American GFR(CKD) >90 (>60 ml/min/1.73 sqM); Potassium 3.1 mmol/L (3.5-5.1); Sodium 140 mmol/L (137-145); Total Bilirubin 0.8 mg/dL (0.2-1.3); Total Protein 6.5 g/dL (6.3-8.2)
[2023-11-30 16:43] LABS: INR 1.2 (<1.2); Partial Thromboplastin Time 30.1 sec (22.0-30.0); Prothrombin Time 12.6 sec (10.0-12.5)
[2023-11-30] MEDS: HEPARIN SODIUM 1,000 UN/ML (10ML VL) IV ONE (16:58)
[2023-11-30] MEDS: HEPARIN SOD,PORK IN 0.45% NACL 25,000 UNIT in 0.45% NACL 1 250ML.BAG IV SCH (17:00)
[2023-11-30] MEDS ORDERED: NALOXONE 0.4 MG/ML 1 ML VIAL IV PRN (17:39)
[2023-11-30] MEDS ORDERED: HYDROmorphone 1 MG/ML 1 ML SYRINGE IVP PRN (17:39)
[2023-11-30] MEDS ORDERED: PNEUMONIA PROTOCOL UTILIZED 1 EACH MISC PO PRN (18:20)
[2023-11-30] MEDS ORDERED: IPRATROPIUM-ALBUTEROL 3 ML NEB INHALATION PRN (18:20)
[2023-11-30] MEDS: POTASSIUM CHLORIDE 20 MEQ in WATER FOR INJECTION 1 100ML.BAG IVPB STA (18:36)
[2023-11-30] MEDS: MAGNESIUM OXIDE 400 MG TAB PO STA ×2 (18:36)
[2023-11-30] MEDS ORDERED: LORazepam 2 MG/ML INJ IV PRN ×3 (18:37)
[2023-11-30] MEDS: SODIUM CHLORIDE 0.9% 1,000 ML IV SCH (18:37)
[2023-11-30] MEDS ORDERED: LORazepam 0.5 MG TAB PO PRN (18:37)
[2023-11-30] MEDS ORDERED: LORazepam 1 MG TAB PO PRN ×3 (18:37)
[2023-11-30] MEDS: POTASSIUM BICARBONATE/CIT AC 20 MEQ TABLET.EFF PO ONE ×2 (18:37→20:01)
--- NOTE | 2023-11-30 18:57 | US ---
EXAMINATION TYPE: US venous doppler duplex LE DATE OF EXAM: 11/30/2023 6:43 PM COMPARISON: US 11/28, US 11/11/2023 CLINICAL INDICATION: Male, 28 years old with history of DVT; Patient states hx of SVT. Patient was he re yesterday with SVT, given heparin. SIDE PERFORMED: Bilateral TECHNIQUE: The lower extremity deep venous system is examined utilizing real time linear array sonog asia with graded compression, doppler sonography and color-flow sonography. VESSELS IMAGED: Common Femoral Vein Deep Femoral Vein Greater Saphenous Vein * Femoral Vein Popliteal Vein Small Saphenous Vein * Proximal Calf Veins (* superficial vessels) Right Leg: Echoes previously seen within the SSV still seen today to the junction of the popliteal/ SSV. There also appears to be a non-occlusive portion of echoes seen within the proximal popliteal ve in. Left Leg: Echoes previously seen within superficial vein still seen today up to the junction of the popliteal vein. IMPRESSION: Bilateral deep vein thrombosis as described above. [facility], Workstation: [id number], 11/30/2023 6:55 PM
--- NOTE | 2023-11-30 19:10 | XR ---
EXAMINATION TYPE: XR chest 2V DATE OF EXAM: 11/30/2023 7:06 PM CLINICAL INDICATION:Male, 28 years old with history of sob; [facility] COMPARISON: None TECHNIQUE: XR chest 2V Frontal and lateral views of the chest. FINDINGS: Lungs/Pleura: There is no evidence of pleural effusion, focal consolidation, or pneumothorax. Pulmonary vascularity: Unremarkable. Heart/mediastinum: Cardiomediastinal silhouette is unremarkable. Musculoskeletal: No acute osseous pathology. IMPRESSION: No acute cardiopulmonary disease/process. [facility], , 11/30/2023 7:08 PM
[2023-11-30] MEDS: AZITHROMYCIN 500 MG in SODIUM CHLORIDE 0.9% 250 ML IVPB STA (20:07)
[2023-11-30] MEDS: ONDANSETRON 4 MG/2 ML VIAL IVP PRN (22:15)
[2023-12-01] MEDS: Apixaban Initiation Dose--VTE 5 MG TAB PO SCH (08:52)
[2023-12-01] MEDS: AZITHROMYCIN 500 MG TAB PO SCH (08:52)
[2023-12-01 09:35] LABS: Basophils % (A) 0 %; Eosinophils # (A) 0.1 k/uL (0-0.7); Eosinophils % (A) 0 %; HCT 32.2 % (39.0-53.0); HGB 10.5 gm/dL (13.0-17.5); Lymphocytes # (A) 1.2 k/uL (1.0-4.8); Lymphocytes % (A) 10 %; MCH 29.4 pg (25.0-35.0); MCHC 32.6 g/dL (31.0-37.0); MCV 90.3 fL (80.0-100.0); Monocytes # (A) 0.5 k/uL (0-1.0); Monocytes % (A) 5 %; Neutrophils % (A) 84 %; Platelet Count 382 k/uL (150-450); RBC 3.56 m/uL (4.30-5.90); WBC 11.9 k/uL (3.8-10.6)
--- NOTE | 2023-12-01 09:37 | XR ---
EXAMINATION TYPE: XR chest 1V portable DATE OF EXAM: 12/01/2023 COMPARISON: 11/30/2023 INDICATION: Pneumonia TECHNIQUE: Single frontal view of the chest is obtained. FINDINGS: The heart size is normal. The pulmonary vasculature is normal. The lungs are clear. IMPRESSION: 1. No acute pulmonary process. [facility], , 12/01/2023 9:35 AM
[2023-12-01 09:46] LABS: ALT 29 U/L (4-49); AST 56 U/L (17-59); African American GFR (CKD) >90 (>60 ml/min/1.73 sqM); Albumin 2.6 g/dL (3.5-5.0); Alkaline Phosphatase 139 U/L (38-126); Anion Gap 5 mmol/L; Blood Urea Nitrogen 3 mg/dL (9-20); Calcium 7.3 mg/dL (8.4-10.2); Carbon Dioxide 26 mmol/L (22-30); Chloride 105 mmol/L (98-107); Glucose 102 mg/dL (74-99); Non-African American GFR(CKD) >90 (>60 ml/min/1.73 sqM); Phosphorus 2.6 mg/dL (2.5-4.5); Potassium 3.3 mmol/L (3.5-5.1); Sodium 136 mmol/L (137-145); Total Bilirubin 1.5 mg/dL (0.2-1.3); Total Protein 6.3 g/dL (6.3-8.2)
--- NOTE | 2023-12-01 10:38 | P.CRDCN ---
History of Present Illness Consult date: 12/01/23 Reason for Consult (text): Syncope History of present illness: This is a 28-year-old male previously seen by Dr. Barron with past medical his tory of alcohol abuse, borderline hypertension, syncope x 2, family history of MTHFR. We have been asked to evaluate the patient for syncope. Patient presented to the emergency center initially on 11/28 for left calf pain and had been previously diagnosed with superficial blood clot in his right calf and been diagnosed with a superficial blood clot in the left calf. Patient gives history that 2 weeks ago he had pain in the right calf and then a few days ago the left calf started hurting. He states he is never had the problem before. Yesterday he apparently was waiting for his to come home and have been home about 30 minutes. He did have some alcohol intake of a couple drinks a passing out episode when he was leaving the bathroom. He states he thinks he was out for about 15 minutes and woke up to his and EMS standing over him. He denies having any chest pain no shortness of breath no palpitations, no PND, no cough no fever. He thinks that sometimes his electrolytes are off and he has felt better since those have been replaced. He is normally very active. He denies any recent trauma to his legs and denies any significant sedentary activities. He was started on started on Eliquis on 11/28 by the ER physician for superficial vein thrombosis. Patient took 1 tablet that day and 1 the following day. Regarding MTHFR gene mutation. He states his grandmother had it and his father is a carrier. Blood pressure 113/88, heart rate 115, pulse ox 97% on room air. Patient is status post 1 L of IV fluids, started on antibiotics, magnesium and potassium replaced. Patient vapes. He states his last alcohol intake was a couple drinks yesterday. He states that he drinks only occasionally but in the past was drinking every day. Patient is currently on a heparin drip as well. Patient is seen today in the emergency center waiting for bed on the cardiac stepdown unit. EKG: Sinus tachycardia at 116 bpm Chest x-ray: No acute cardiopulmonary disease Venous Doppler duplex bilateral lower extremity positive for DVT bilaterally CAT scan of the brain showed no acute intracranial process. CTA of the chest: Left lower lobe pulmonary embolus leading to area of suspected pulmonary infarct. Also noted congenital absence of the left kidney, severe hepatic steatosis. Laboratory studies: WBC 10, hemoglobin 10.8, platelet count 451. D-dimer 4.95. Troponin negative x 1. proBNP 46. Calcium 7.4, magnesium 1.3. Potassium 3.1. Home cardiac medications: Eliquis 5 mg twice daily Review Of Systems: At the time of my exam: CONSTITUTIONAL: Denies fever or chills. HEENT: Denies blurred vision, vision changes, or eye pain. Denies hemoptysis CARDIOVASCULAR: Denies chest pain. Denies orthopnea. Denies PND. Denies palpitations RESPIRATORY: Denies shortness of breath. GASTROINTESTINAL: Denies abdominal pain. Denies nausea or vomiting. HEMATOLOGIC: Denies bleeding disorders. GENITOURINARY: Denies any blood in urine. SKIN: Denies puritis. Denies rash. Physical examination: Gen: This is a 28-year-old man appears to be in no acute distress VS: reviewed HEENT: Head is atraumatic, normocephalic. Pupils equal, round. Sclerae is anicteric. NECK: Supple. No JVD. LUNGS: Clear to auscultation. No wheezes or rhonchi. No intercostal retractions. HEART: Regular rate and rhythm. No murmur. ABDOMEN: Soft No tenderness. EXTREMITIES: 1+ left lower extremity edema, no edema on the right leg. NEUROLOGICAL: Patient is awake, alert and oriented x3. Assessment: Left lower pulmonary embolus Bilateral lower extremity DVT Family history of MTHFR gene mutation Syncopal episode Hypokalemia status post replacement Hypomagnesia status post replacement History of previous syncopal episodes of unclear etiology History of alcohol abuse Vaping Plan: Discontinue heparin drip Start patient on VTE Eliquis protocol Obtain 2-D echocardiogram and Doppler study to assess cardiac structure and function Consult with hematology added regarding family history of MTHFR gene mutation and current PE with bilateral DVT Further recommendations to follow based upon clinical course Thank you kindly for this consultation. Nurse practitioner note has been reviewed, I agree with documented findings and plan of care. Patient was seen and examined. Past Medical History Past Medical History: Deep Vein Thrombosis (DVT) History of Any Multi-Drug Resistant Organisms: None Reported Past Surgical History: No Surgical Hx Reported Past Psychological History: No Psychological Hx Reported Smoking Status: Current every day smoker, Vaper Past Alcohol Use History: Daily, Occasional Past Drug Use History: Marijuana Medications and Allergies Home Medications Medication Instructions Recorded Confirmed Type Apixaban [Eliquis] 5 mg PO BID #60 tab 11/29/23 11/30/23 Rx Allergies Allergy/AdvReac Type Severity Reaction Status Date / Time ketorolac [From Toradol] Allergy Unknown Verified 11/30/23 16:01 Physical Exam Vitals: Vital Signs Temp Pulse Resp BP Pulse Ox 12/01/23 05:41 115 H 18 137/88 97 12/01/23 02:34 98.8 F 116 H 18 130/76 96 11/30/23 23:15 111 H 18 130/81 97 11/30/23 21:25 112 H 129/95 97 11/30/23 20:00 101 H 18 146/87 96 11/30/23 18:00 120 H 24 140/90 96 11/30/23 17:00 118 H 24 138/97 98 11/30/23 16:00 104 H 22 137/94 99 11/30/23 15:04 108 H 20 139/93 99 11/30/23 14:31 99.4 F 114 H 20 137/97 99 Results 12/01/23 09:08 12/01/23 09:08 Cardiac Enzymes 11/30/23 11/30/23 Range/Units 14:59 14:59 AST 50 (17-59) U/L Troponin I <0.012 (0.000-0.034) ng/mL Coagulation 11/30/23 11/30/23 Range/Units 14:59 23:01 PT 12.6 H (10.0-12.5) sec APTT 30.1 H 55.0 H (22.0-30.0) sec CBC 11/30/23 Range/Units 14:59 WBC 10.0 (3.8-10.6) k/uL RBC 3.83 L (4.30-5.90) m/uL Hgb 10.8 L (13.0-17.5) gm/dL Hct 34.8 L (39.0-53.0) % Plt Count 451 H (150-450) k/uL Comprehensive Metabolic Panel 11/30/23 Range/Units 14:59 Sodium 140 (137-145) mmol/L Potassium 3.1 L (3.5-5.1) mmol/L Chloride 106 (98-107) mmol/L Carbon Dioxide 25 (22-30) mmol/L BUN <2 L (9-20) mg/dL Creatinine 0.75 (0.66-1.25) mg/dL Glucose 83 (74-99) mg/dL Calcium 7.4 L (8.4-10.2) mg/dL AST 50 (17-59) U/L ALT 31 (4-49) U/L Alkaline Phosphatase 140 H (38-126) U/L Total Protein 6.5 (6.3-8.2) g/dL Albumin 2.7 L (3.5-5.0) g/dL Current Medications Generic Name Dose Route Start Last Admin Trade Name Freq PRN Reason Stop Dose Admin Albuterol/Ipratropium 3 ml 11/30/23 18:20 Ipratropium-Albuterol 3 Ml Neb INHALATION RT-Q4H PRN shortness of breath Azithromycin 500 mg 12/01/23 09:00 Azithromycin 500 Mg Tab PO 12/02/23 09:01 DAILY FRANCHESKA Protocol Heparin Sodium (Porcine) 0 unit 11/30/23 16:25 Heparin Sodium 1,000 Un/Ml (10ml Vl) IV PER PROTOCOL PRN Low PTT Protocol Hydromorphone HCl 1 mg 11/30/23 17:39 Hydromorphone 1 Mg/Ml 1 Ml Syringe IVP Q3HR PRN Severe Pain (Scale 7 to 10) Heparin Sodium/Sodium Chloride 250 mls @ 16.329 mls/hr 11/30/23 16:30 11/30/23 17:00 25,000 unit/ Sodium Chloride IV 18 units/kg/hr .[id number] FRANCHESKA 16.329 mls/hr Administration Protocol 18 UNITS/KG/HR Sodium Chloride 1,000 mls @ 75 mls/hr 11/30/23 17:45 12/01/23 06:10 Saline 0.9% IV 75 mls/hr .[id number] FRANCHESKA Administration Ceftriaxone Sodium 2 gm/ 50 mls @ 100 mls/hr 12/01/23 09:00 Sodium Chloride IVPB 12/04/23 09:29 Q24HR FRANCHESKA Protocol Lorazepam 0.5 mg 11/30/23 18:37 Lorazepam 0.5 Mg Tab PO Q4HR PRN Ciwa 4 To 5 Lorazepam 1 mg 11/30/23 18:37 Lorazepam 1 Mg Tab PO Q4HR PRN Ciwa 6 To 7 Lorazepam 2 mg 11/30/23 18:37 Lorazepam 1 Mg Tab PO Q2HR PRN Ciwa 10 or greater Lorazepam 2 mg 11/30/23 18:37 Lorazepam 1 Mg Tab PO Q3HR PRN Ciwa 8 To 9 Lorazepam 2 mg 11/30/23 18:37 Lorazepam 2 Mg/Ml Inj IV 12/02/23 18:38 Q10M PRN CIWA 16 or higher Lorazepam 1 mg 11/30/23 18:37 Lorazepam 2 Mg/Ml Inj IV Q2HR PRN CIWA 8 or 9 Lorazepam 1 mg 11/30/23 18:37 Lorazepam 2 Mg/Ml Inj IV Q1HR PRN CIWA 10 to 15 Miscellaneous Information 1 each 11/30/23 18:20 Pneumonia Protocol Utilized 1 Each Misc PO ONCE PRN Per Protocol Naloxone HCl 0.2 mg 11/30/23 17:39 Naloxone 0.4 Mg/Ml 1 Ml Vial IV Q2M PRN Opioid Reversal Ondansetron HCl 4 mg 11/30/23 17:39 11/30/23 22:15 Ondansetron 4 Mg/2 Ml Vial IVP 4 mg Q8HR PRN Administration Nausea And Vomiting 11/30/23 14:59 11/30/23 14:59
--- NOTE | 2023-12-01 12:18 | P.HPIM ---
History of Present Illness H&P Date: 12/01/23 Chief Complaint: Syncope This is a 28-year-old obese male with past medical history significant for recently diagnosed for DVT and prescribed Eliquis on 11/29/2023-haily Wisdom yncope of unclear etiology, alcohol abuse-reports currently only occasional use, family history of MTHFR (grandmother had it, father is a carrier) and multiple other medical issues. Prior to this admission, patient had presented a couple times to the ER regarding nontraumatic, lower extremity pain :venous Doppler on 11/10 reported no evidence of DVT right lower extremity, superficial thrombus on the small saphenous vein. On 11/28 Doppler ultrasound reported no evidence of DVT of left leg-superficial vessel does appear to have thrombus up to the junction with the popliteal vein. Yesterday, shortly after arriving home from work, had not yet arrived home, consumed a couple alcoholic drinks, passed out as he was walking out of the bathroom. Unsure of downtime. Patient awakened to both EMS and his standing over him.Denies any incontinence of urine or bowel. Denies any lightheadedness, dizziness or focal deficits. Denies headache or visual disturbances. Denies any recent illnesses, fever, chills or cough. Denies any known sick contacts. denies any chest pain, palpitations or shortness of breath. Denies trauma to bilateral legs. Denies sedentary lifestyle. On admission blood pressure 113/88, mild tachycardia with heart rate 115, maintaining O2 sats in the high 90s on room air. Potassium was 3.1 and magnesium 1.3-supplemented. Received IV fluid hydration, antibiotics. EKG reported sinus tachycardia, chest x-ray reported no acute cardiopulmonary disease. Elevated D-dimer, 4.95. Doppler reporting bilateral lower extremity DVTs, brain CT reported no acute intracranial process. Chest CTA reported left lower lobe pulmonary embolism leading to area of suspected pulmonary infarct. Congenital absence of left kidney. Severe hepatic steatosis. Afebrile, normal WBC. Hemoglobin 10.8 platelets 451. MCV 90, Potassium 3.1, bicarb 25, BUN less than 2, creatinine 0.75 magnesium 1.3, LFTs within normal limits with the exception of alkaline phosphatase 140 ,proBNP 46, troponin negative x 1. Anticoagulated on heparin drip. Review of Systems ROS Statement: Those systems with pertinent positive or pertinent negative responses have been documented in the HPI. ROS Other: All systems not noted in ROS Statement are negative. Past Medical History Past Medical History: Deep Vein Thrombosis (DVT) History of Any Multi-Drug Resistant Organisms: None Reported Past Surgical History: No Surgical Hx Reported Past Psychological History: No Psychological Hx Reported Smoking Status: Current every day smoker, Vaper Past Alcohol Use History: Daily, Occasional Past Drug Use History: Marijuana Medications and Allergies Home Medications Medication Instructions Recorded Confirmed Type Apixaban [Eliquis] 5 mg PO BID #60 tab 11/29/23 11/30/23 Rx Allergies Allergy/AdvReac Type Severity Reaction Status Date / Time ketorolac [From Toradol] Allergy Unknown Verified 11/30/23 16:01 Physical Exam Vitals: Vital Signs Temp Pulse Resp BP Pulse Ox 12/01/23 09:00 111 H 18 142/84 98 12/01/23 05:41 115 H 18 137/88 97 12/01/23 02:34 98.8 F 116 H 18 130/76 96 11/30/23 23:15 111 H 18 130/81 97 11/30/23 21:25 112 H 129/95 97 11/30/23 20:00 101 H 18 146/87 96 11/30/23 18:00 120 H 24 140/90 96 11/30/23 17:00 118 H 24 138/97 98 11/30/23 16:00 104 H 22 137/94 99 11/30/23 15:04 108 H 20 139/93 99 11/30/23 14:31 99.4 F 114 H 20 137/97 99 PHYSICAL EXAM: VITAL SIGNS: [Reviewed] GENERAL: Alert and oriented, pleasant 28-year-old gentleman sitting up on stretcher, no acute distress HEENT: Normocephalic, atraumatic ,conjunctivae normal. Sclera anicteric. NECK: Supple, no JVD. No thyroid enlargement. No LNs CARDIOVASCULAR: S1, S2 regular. Tachycardic, no murmur RESPIRATION: Unlabored, equal air entry. CTA. ABDOMEN: Soft, nondistended, nontender . No guarding. no masses palpable. No ascites, No hepatosplenomegaly.Bowel sounds heard. LEGS: Positive left lower extremity edema. PSYCHIATRY: Alert and oriented X3, mood and affect normal. NERVOUS SYSTEM: Cranial N 2-12 grossly normal. Moves all 4 limbs. Diffuse weakness No focal deficits. Strength and sensation grossly intact.. Skin: no lesions, no rash Results CBC & Chem 7: 12/01/23 09:08 12/01/23 09:08 Labs: Abnormal Lab Results - Last 24 Hours (Table) 11/30/23 11/30/23 11/30/23 Range/Units 14:59 14:59 14:59 WBC (3.8-10.6) k/uL RBC 3.83 L (4.30-5.90) m/uL Hgb 10.8 L (13.0-17.5) gm/dL Hct 34.8 L (39.0-53.0) % RDW 15.8 H (11.5-15.5) % Plt Count 451 H (150-450) k/uL Neutrophils # (1.3-7.7) k/uL PT 12.6 H (10.0-12.5) sec INR 1.2 H (<1.2) APTT 30.1 H (22.0-30.0) sec D-Dimer 4.95 H (<0.60) mg/L FEU Sodium (137-145) mmol/L Potassium 3.1 L (3.5-5.1) mmol/L BUN <2 L (9-20) mg/dL Creatinine (0.66-1.25) mg/dL Glucose (74-99) mg/dL Calcium 7.4 L (8.4-10.2) mg/dL Magnesium 1.3 L (1.6-2.3) mg/dL Total Bilirubin (0.2-1.3) mg/dL Alkaline Phosphatase 140 H (38-126) U/L Albumin 2.7 L (3.5-5.0) g/dL 11/30/23 12/01/23 12/01/23 Range/Units 23:01 09:08 09:08 WBC 11.9 H (3.8-10.6) k/uL RBC 3.56 L (4.30-5.90) m/uL Hgb 10.5 L (13.0-17.5) gm/dL Hct 32.2 L (39.0-53.0) % RDW 16.0 H (11.5-15.5) % Plt Count (150-450) k/uL Neutrophils # 10.0 H (1.3-7.7) k/uL PT (10.0-12.5) sec INR (<1.2) APTT 55.0 H (22.0-30.0) sec D-Dimer (<0.60) mg/L FEU Sodium 136 L (137-145) mmol/L Potassium 3.3 L (3.5-5.1) mmol/L BUN 3 L (9-20) mg/dL Creatinine 0.65 L (0.66-1.25) mg/dL Glucose 102 H (74-99) mg/dL Calcium 7.3 L (8.4-10.2) mg/dL Magnesium 1.0 L (1.6-2.3) mg/dL Total Bilirubin 1.5 H (0.2-1.3) mg/dL Alkaline Phosphatase 139 H (38-126) U/L Albumin 2.6 L (3.5-5.0) g/dL 12/01/23 Range/Units 09:08 WBC (3.8-10.6) k/uL RBC (4.30-5.90) m/uL Hgb (13.0-17.5) gm/dL Hct (39.0-53.0) % RDW (11.5-15.5) % Plt Count (150-450) k/uL Neutrophils # (1.3-7.7) k/uL PT (10.0-12.5) sec INR (<1.2) APTT 57.9 H (22.0-30.0) sec D-Dimer (<0.60) mg/L FEU Sodium (137-145) mmol/L Potassium (3.5-5.1) mmol/L BUN (9-20) mg/dL Creatinine (0.66-1.25) mg/dL Glucose (74-99) mg/dL Calcium (8.4-10.2) mg/dL Magnesium (1.6-2.3) mg/dL Total Bilirubin (0.2-1.3) mg/dL Alkaline Phosphatase (38-126) U/L Albumin (3.5-5.0) g/dL Assessment and Plan Assessment: Left lower lobe pulmonary embolism, bilateral lower extremity DVT, in a patient with family history of MTHFR gene mutation. Syncope in a patient with history of previous syncopal episodes of unclear etiology Ongoing nicotine dependence Vaper Marijuana use History of alcohol abuse Severe hepatic steatosis Hypokalemia Hypomagnesemia Obesity, BMI 32 Depression Plan: Continue on current medication resume ,monitoring and symptomatic treatment. Labs pending. Continues on CIWA protocol, current CIWA score 0. echo pending. evaluated by cardiology, heparin drip DC'd ,Kimani initiated. Oncology consult in place, regarding family history of MTHFR. CIWA protocol. Alcohol abstinence and smoking/vaping/marijuana cessation reinforced. Psychiatry consulted , upon questioning, reports depression, denies suicidal or homicidal ideation.Close monitoring electrolytes with repeat labs ordered for a.m. The impression and plan of care has been dictated as directed. : I performed a history and examination of this patient, discussed the same with the dictator. I agree with the dictator's note ,documented as a scribe. Any additional findings or plans will be noted.
--- NOTE | 2023-12-01 13:02 | NM ---
EXAMINATION TYPE: NM pul vent and perfuse DATE OF EXAM: 12/01/2023 CLINICAL INDICATION: Male, 28 years old with history of sob; COMPARISON: NONE TECHNIQUE: Utilizing inhalation of 37.8 mCi Tc 99m DTPA aerosol and intravenous injection of 5.3 mCi of Tc 99m MAA, ventilation and perfusion images are acquired post injection in multiple projections. FINDINGS: Central accumulation of radiotracer compatible with COPD. Patchy matched uptake on perfusion and vent ilation imaging. Small mismatch defects noted at the lung bases IMPRESSION: Intermediate probability for pulmonary embolism. [facility], , 12/01/2023 12:59 PM
[2023-12-01] MEDS: POTASSIUM CHLORIDE ER 20 MEQ TAB.ER PO SCH (14:27)
[2023-12-01] MEDS: MAGNESIUM SULFATE-D5W PMX 1 GM in DEXTROSE/WATER 1 100ML.BAG IVPB SCH (14:27)
--- NOTE | 2023-12-01 15:33 | P.CONS ---
History of Present Illness - Reason for Consult Consult date: 12/01/23 PE, DVT Requesting physician: Rina Jacinto - Chief Complaint syncopy - History of Present Illness Mr. Banerjee is a 28 yo male who presented to the ER 11/10 with c/o rt calf pain x 5 days, persistent, progressive swelling, redness. Doppler reported superficial thrombus in the small saphenoous vein. He was discharged with instructions for asa, NSAIDs for pain, warm compress, compression sock and PCP f/u. He again presented on 11/29 with c/o left calf pain x 2 days. Doppler reported a superficial posterior knee thrombosis up to popliteal vein, close to deep vein system. Pt was started on 10mg eliquis and sent home with Rx fo rthe same. He took a dose the next morning. He was sent home form work, feeling a little dizzy, leg pain. He went to the bathroom at home and passed out. He was brought to ER for assessment. CTA reported LLL PE possibly leading to area of suspected pulm infarct or pneumonia. Doppler of the BLE is showing SVT up to the popliteal veins. Pt reports feeling much better since admit, his legs feel better, He denies personal Hx of blood clots, gma had clots he thinks, was told she had MTHFR and father was a carrier. No recent surgery, prolonged immobility, long trips, covid, use of testosterone or hormones. He is active and healthy otherwise. Review of Systems 10 point ROS is neg except as stated in HPI Past Medical History Past Medical History: Deep Vein Thrombosis (DVT), Pulmonary Embolus (PE) History of Any Multi-Drug Resistant Organisms: None Reported Past Surgical History: No Surgical Hx Reported Past Psychological History: No Psychological Hx Reported Smoking Status: Current every day smoker, Vaper Past Alcohol Use History: Daily, Occasional Past Drug Use History: Marijuana Medications and Allergies Home Medications Medication Instructions Recorded Confirmed Type Apixaban [Eliquis] 5 mg PO BID #60 tab 11/29/23 11/30/23 Rx Allergies Allergy/AdvReac Type Severity Reaction Status Date / Time ketorolac [From Toradol] Allergy Unknown Verified 11/30/23 16:01 Physical Exam Vitals: Vital Signs Temp Pulse Resp BP Pulse Ox 12/01/23 09:00 111 H 18 142/84 98 12/01/23 05:41 115 H 18 137/88 97 12/01/23 02:34 98.8 F 116 H 18 130/76 96 11/30/23 23:15 111 H 18 130/81 97 11/30/23 21:25 112 H 129/95 97 11/30/23 20:00 101 H 18 146/87 96 11/30/23 18:00 120 H 24 140/90 96 11/30/23 17:00 118 H 24 138/97 98 11/30/23 16:00 104 H 22 137/94 99 11/30/23 15:04 108 H 20 139/93 99 11/30/23 14:31 99.4 F 114 H 20 137/97 99 - Constitutional General appearance: average body habitus, cooperative, no acute distress - EENT Eyes: anicteric sclerae, EOMI ENT: hearing grossly normal, normal oropharynx - Respiratory Respiratory: bilateral: CTA - Cardiovascular Rhythm: regular Heart sounds: normal: S1, S2 Abnormal Heart Sounds: no systolic murmur, no diastolic murmur, no rub, no S3 Gallop, no S4 Gallop, no click, no other leg Peripheral Edema: right: None, left: 1+ - Gastrointestinal General gastrointestinal: no absent bowel sounds, no decreased bowel sounds, no distended, no hepatomegaly, no hyperactive bowel sounds, normal bowel sounds, no organomegaly, no rigid, no scaphoid, soft, no splenomegaly, no tenderness, no umbilical hernia, no ventral hernia - Integumentary Integumentary: normal - Neurologic Neurologic: CNII-XII intact - Musculoskeletal Musculoskeletal: strength equal bilaterally - Psychiatric Psychiatric: A&O x's 3, appropriate affect, intact judgment & insight Results CBC & Chem 7: 12/01/23 09:08 12/01/23 09:08 Labs: Abnormal Lab Results - Last 24 Hours (Table) 11/30/23 11/30/23 11/30/23 Range/Units 14:59 14:59 14:59 WBC (3.8-10.6) k/uL RBC 3.83 L (4.30-5.90) m/uL Hgb 10.8 L (13.0-17.5) gm/dL Hct 34.8 L (39.0-53.0) % RDW 15.8 H (11.5-15.5) % Plt Count 451 H (150-450) k/uL Neutrophils # (1.3-7.7) k/uL PT 12.6 H (10.0-12.5) sec INR 1.2 H (<1.2) APTT 30.1 H (22.0-30.0) sec D-Dimer 4.95 H (<0.60) mg/L FEU Sodium (137-145) mmol/L Potassium 3.1 L (3.5-5.1) mmol/L BUN <2 L (9-20) mg/dL Creatinine (0.66-1.25) mg/dL Glucose (74-99) mg/dL Calcium 7.4 L (8.4-10.2) mg/dL Magnesium 1.3 L (1.6-2.3) mg/dL Total Bilirubin (0.2-1.3) mg/dL Alkaline Phosphatase 140 H (38-126) U/L Albumin 2.7 L (3.5-5.0) g/dL 11/30/23 12/01/23 12/01/23 Range/Units 23:01 09:08 09:08 WBC 11.9 H (3.8-10.6) k/uL RBC 3.56 L (4.30-5.90) m/uL Hgb 10.5 L (13.0-17.5) gm/dL Hct 32.2 L (39.0-53.0) % RDW 16.0 H (11.5-15.5) % Plt Count (150-450) k/uL Neutrophils # 10.0 H (1.3-7.7) k/uL PT (10.0-12.5) sec INR (<1.2) APTT 55.0 H (22.0-30.0) sec D-Dimer (<0.60) mg/L FEU Sodium 136 L (137-145) mmol/L Potassium 3.3 L (3.5-5.1) mmol/L BUN 3 L (9-20) mg/dL Creatinine 0.65 L (0.66-1.25) mg/dL Glucose 102 H (74-99) mg/dL Calcium 7.3 L (8.4-10.2) mg/dL Magnesium 1.0 L (1.6-2.3) mg/dL Total Bilirubin 1.5 H (0.2-1.3) mg/dL Alkaline Phosphatase 139 H (38-126) U/L Albumin 2.6 L (3.5-5.0) g/dL 12/01/23 Range/Units 09:08 WBC (3.8-10.6) k/uL RBC (4.30-5.90) m/uL Hgb (13.0-17.5) gm/dL Hct (39.0-53.0) % RDW (11.5-15.5) % Plt Count (150-450) k/uL Neutrophils # (1.3-7.7) k/uL PT (10.0-12.5) sec INR (<1.2) APTT 57.9 H (22.0-30.0) sec D-Dimer (<0.60) mg/L FEU Sodium (137-145) mmol/L Potassium (3.5-5.1) mmol/L BUN (9-20) mg/dL Creatinine (0.66-1.25) mg/dL Glucose (74-99) mg/dL Calcium (8.4-10.2) mg/dL Magnesium (1.6-2.3) mg/dL Total Bilirubin (0.2-1.3) mg/dL Alkaline Phosphatase (38-126) U/L Albumin (3.5-5.0) g/dL Chest x-ray: report reviewed CT scan - chest: report reviewed CT Scan - head: report reviewed Venous US: report reviewed Assessment and Plan (1) Superficial vein thrombosis Current Visit: Yes Status: Acute Code(s): I82.890 - ACUTE EMBOLISM AND THROMBOSIS OF OTHER SPECIFIED VEINS SNOMED Code(s): 202109270 (2) Vasovagal syncope Current Visit: Yes Status: Acute Code(s): R55 - SYNCOPE AND COLLAPSE SNOMED Code(s): 902001949 Plan: SVT, possible PE. Syncopy -Circumstances surrounding recent diagnosis in HPI. Pt had taken 2 doses of eliquis prior to syncopy -Possible that clot may have been in transit when anticoagulation initiated. No baseline CTA for comparison. CTA report reviewed. Will ask for repeat for hopeful improved images for review -Syncopy after using bathroom, vaso vagal? -Repeat doppler of BLE with comparison to assess any suspected changes -Due to timing of events, it is not felt that this is a failure of ganesh at this time. Pt is reporting that he feels much better today, legs feel better. He had/has no associated symptoms other then the single instance of syncopy. -Pending CTA and doppler results for anticoagulation recs -Plans for complete hypercoaguable work up outpt as pt has unprovoked thrombosis. Of note, studies have shown that MTHFR gene mutation is no longer considered a hypercoaguable condition and testing is no longer recommended. Doctor attests: I performed a history and physical examination of this patient, developed impression and plan of care. Discussed with dictator. I agree with dictators note, documented as a scribe.
--- NOTE | 2023-12-01 15:47 | CA ---
Transthoracic Echo Report Name: Elian Banerjee Age: 28 Gender: M : 1995 Exam Date: 12/01/2023 11:24 Exam Location: [facility] Ht (in): 66 Wt (lb): 200 Ordering Physician: Louie Dallas DO Attending/Referring Phys: [id number], Celena Instrument/Control Technician Mary Hooper RDCS Procedure CPT: Indications: PE Cardiac Hx: Technical Quality: Fair Contrast 1: Total Dose (mL): Contrast 2: Total Dose (mL): MEASUREMENTS (Male / Female) Normal Values 2D ECHO LV Diastolic Diameter PLAX 4.6 cm 4.2 - 5.9 / 3.9 - 5.3 cm LV Systolic Diameter PLAX 3.0 cm IVS Diastolic Thickness 1.0 cm 0.6 - 1.0 / 0.6 - 0.9 cm LVPW Diastolic Thickness 1.3 cm 0.6 - 1.0 / 0.6 - 0.9 cm LV Relative Wall Thickness 0.5 LA Volume 50.4 cm??? 18 - 58 / 22 - 52 cm??? LA Volume Index 24.2 cm???/m??? 16 - 28 cm???/m??? M-MODE Aortic Root Diameter MM 3.3 cm LA Systolic Diameter MM 4.2 cm LA Ao Ratio MM 1.3 AV Cusp Separation MM 2.3 cm DOPPLER AV Peak Velocity 119.9 cm/s AV Peak Gradient 5.8 mmHg AV Mean Velocity 80.7 cm/s AV Mean Gradient 3.0 mmHg AV Velocity Time Integral 18.7 cm LVOT Peak Velocity 99.7 cm/s LVOT Peak Gradient 4.0 mmHg LVOT Velocity Time Integral 16.5 cm MV Area PHT 6.0 cm??? Mitral E Point Velocity 72.6 cm/s Mitral A Point Velocity 117.1 cm/s Mitral E to A Ratio 0.6 MV Deceleration Time 126.6 ms MV E' Velocity 12.6 cm/s Mitral E to MV E' Ratio 5.8 FINDINGS Left Ventricle Left ventricular ejection fraction is estimated at 55-60 %. Normal Left ventricular size, wall thickness, systolic function with no obvious regional wall motion abnormalities. Normal Left ventricular diastolic filling pattern. Right Ventricle Normal right ventricular size and function. Right ventricular systolic pressure within normal limits. Right Atrium Normal right atrial size. Left Atrium Normal left atrial size. Mitral Valve Structurally normal mitral valve. No mitral stenosis, regurgitation or prolapse. Aortic Valve Trileaflet aortic valve. No aortic valve stenosis or regurgitation. Tricuspid Valve Structurally normal tricuspid valve. Pulmonic Valve Structurally normal pulmonic valve. Pericardium No pericardial effusion. Aorta Normal size aortic root and proximal ascending aorta. CONCLUSIONS Diagnosis pulmonary embolism syncope Preserved LV sinus Tollett function RV size appears normal RVSP normal Previewed by: Dr. Sarwat Brewer MD (Electronically Signed) Final Date: 01 December 2023 15:46
--- NOTE | 2023-12-01 16:31 | CT ---
EXAMINATION TYPE: CT angio chest DATE OF EXAM: 12/01/2023 COMPARISON: Previous day HISTORY: eval for pe CT DLP: 527.5 mGycm CONTRAST: CT chest with contrast and 3D reconstruction with MIP imaging is performed with IV Contrast, patient injected with 65 mL of Isovue 370. Contrast-enhanced CT of the chest was performed through the course of the pulmonary arteries with linda g and mediastinal window settings submitted. 3D reconstruction with MIP imaging was also performed. PULMONARY ARTERIES: There are couple of pulmonary arterial filling defects seen coronal image 94.76 a nd 95 of 176 which I cannot exclude pulmonary embolism. Also filling defect within the tertiary branc hes of the right lower lobe. Findings are felt to reflect pulmonary edema wasn't until proven otherwi se. No evidence of large central embolus. LUNGS: Bilateral pleural effusions are noted left greater than right. Left-sided effusion layers from the left lung base through the left lung apex. There is compressive atelectasis seen bilaterally. MEDIASTINUM: Thoracic aorta is of normal caliber.. The heart is not enlarged. No evidence of right heart strain. No evidence for mediastinal mass. No mediastinal lymph nodes greater than 1cm. HILAR STRUCTURES: No evidence for mass. No hilar lymph nodes greater than 1 cm. UPPER ABDOMEN: Hepatic steatosis. IMPRESSION: 1. Multiple filling defects seen within basilar third order branches of the pulmonary arteries felt to reflect pulmonary embolism until proven otherwise. Basilar compressive atelectasis and/or possible infiltrate particularly at the left lung base. Left greater than right pleural effusions. [facility], , 12/01/2023 4:29 PM
[2023-12-01] MEDS: ACETAMINOPHEN TAB 325 MG TAB PO PRN (20:25)
[2023-12-02 09:24] VITALS: RESP 16
[2023-12-02 09:33] LABS: Basophils % (A) 0 %; Eosinophils # (A) 0.2 k/uL (0-0.7); Eosinophils % (A) 2 %; HCT 35.5 % (39.0-53.0); HGB 11.2 gm/dL (13.0-17.5); Hypochromasia Slight; Lymphocytes # (A) 0.8 k/uL (1.0-4.8); Lymphocytes % (A) 10 %; MCH 29.3 pg (25.0-35.0); MCHC 31.6 g/dL (31.0-37.0); MCV 92.7 fL (80.0-100.0); Mean Platelet Volume 8.8; Monocytes # (A) 0.3 k/uL (0-1.0); Monocytes % (A) 3 %; Neutrophils # (A) 7.3 k/uL (1.3-7.7); Neutrophils % (A) 84 %; Platelet Count 387 k/uL (150-450); RBC 3.83 m/uL (4.30-5.90); RDW 15.7 % (11.5-15.5); WBC 8.8 k/uL (3.8-10.6)
[2023-12-02 10:06] LABS: African American GFR (CKD) >90 (>60 ml/min/1.73 sqM); Anion Gap 9 mmol/L; Blood Urea Nitrogen <2 mg/dL (9-20); Calcium 8.2 mg/dL (8.4-10.2); Carbon Dioxide 21 mmol/L (22-30); Chloride 106 mmol/L (98-107); Glucose 90 mg/dL (74-99); Non-African American GFR(CKD) >90 (>60 ml/min/1.73 sqM); Potassium 4.1 mmol/L (3.5-5.1); Sodium 136 mmol/L (137-145)
--- NOTE | 2023-12-02 10:46 | US ---
EXAMINATION TYPE: US venous doppler duplex LE BI DATE OF EXAM: 12/01/2023 10:10 AM COMPARISON: Bilateral lower extremity venous ultrasound 11/30/2023 CLINICAL INDICATION: Male, 28 years old with history of compare to prior, migration of clot?; Multipl e ultrasounds. On IV blood thinner. SIDE PERFORMED: Bilateral TECHNIQUE: The lower extremity deep venous system is examined utilizing real time linear array sonog asia with graded compression, doppler sonography and color-flow sonography. VESSELS IMAGED: Common Femoral Vein Deep Femoral Vein Greater Saphenous Vein * Femoral Vein Popliteal Vein Small Saphenous Vein * Proximal Calf Veins (* superficial vessels) Right Leg: Echoes previously seen within the SSV still seen today to the junction of the popliteal/ SSV. There also appears to be a non-occlusive portion of echoes seen within the proximal popliteal ve in. Left Leg: Echoes previously seen within posterior upper calf superficial vein still seen today up to the junction of the popliteal vein IMPRESSION: 1. Persistent superficial venous thrombosis of the right small saphenous vein to the junction of the popliteal vein with now nonocclusive deep venous thrombosis of the proximal popliteal vein. 2. Persistent superficial venous thrombosis of the left lower extremity posterior upper calf up to t he junction with the popliteal vein. [facility], , 12/02/2023 10:44 AM
[2023-12-02 12:45] VITALS: BP 133/91; PULSE 105; TEMP 99.1
--- NOTE | 2023-12-02 13:15 | P.DS ---
Providers Date of admission: 11/30/23 17:43 Expected date of discharge: 12/02/23 Attending physician: Chandu Murphy Consults: 11/30/23 17:39 Consult Physician Routine Consulting Provider: Lu Becker Consult Reason/Comments: syncope Do you want consulting provider notified?: Yes 12/01/23 08:38 Consult Physician Routine Consulting Provider: Rickey Marinelli Consult Reason/Comments: PE, MTHFR in family members Do you want consulting provider notified?: Yes 12/01/23 12:53 Consult Physician Routine Consulting Provider: Patrice Khan Consult Reason/Comments: depession Do you want consulting provider notified?: Yes Primary care physician: [facility] Course: Final Diagnoses: Left lower lobe pulmonary embolism, bilateral lower extremity DVT, in a patient with family history of MTHFR gene mutation. Syncope in a patient with history of previous syncopal episodes of unclear etiology, secondary to the above. Ongoing nicotine dependence Vaper Marijuana use History of alcohol abuse Severe hepatic steatosis Hypokalemia Hypomagnesemia Obesity, BMI 32 Depression Hospital course:This is a 28-year-old obese male with past medical history significant for recently diagnosed for DVT and prescribed Eliquis on 11/29/2023- [facility], syncope of unclear etiology, alcohol abuse-reports currently only occasional use, family history of MTHFR (grandmother had it, father is a carrier) and multiple other medical issues. Prior to this admission, patient had presented a couple times to the ER regarding nontraumatic, lower extremity pain :venous Doppler on 11/10 reported no evidence of DVT right lower extremity, superficial thrombus on the small saphenous vein. On 11/28 Doppler ultrasound reported no evidence of DVT of left leg-superficial vessel does appear to have thrombus up to the junction with the popliteal vein. Yesterday, shortly after arriving home from work, had not yet arrived home, consumed a couple alcoholic drinks, passed out as he was walking out of the bathroom. Unsure of downtime. Patient awakened to both EMS and his standing over him.Denies any incontinence of urine or bowel. Denies any lightheadedness, dizziness or focal deficits. Denies headache or visual disturbances. Denies any recent illnesses, fever, chills or cough. Denies any known sick contacts. denies any chest pain, palpitations or shortness of breath. Denies trauma to bilateral legs. Denies sedentary lifestyle. On admission blood pressure 113/88, mild tachycardia with heart rate 115, maintaining O2 sats in the high 90s on room air. Potassium was 3.1 and magnesium 1.3-supplemented. Received IV fluid hydration, antibiotics. EKG reported sinus tachycardia, chest x-ray reported no acute cardiopulmonary disease. Elevated D-dimer, 4.95. Doppler reporting bilateral lower extremity DVTs, brain CT reported no acute intracranial process. Chest CTA reported left lower lobe pulmonary embolism leading to area of suspected pulmonary infarct. Congenital absence of left kidney. Severe hepatic steatosis. Afebrile, normal WBC. Hemoglobin 10.8 platelets 451. MCV 90, Potassium 3.1, bicarb 25, BUN less than 2, creatinine 0.75 magnesium 1.3, LFTs within normal limits with the exception of alkaline phosphatase 140 ,proBNP 46, troponin negative x 1. Anticoagulated on heparin drip. current CIWA score 0. echo pending. evaluated by cardiology, heparin drip DC'd ,Eliquis initiated. Oncology consult in place, regarding family history of MTHFR. CIWA protocol. Alcohol abstinence and smoking/vaping/marijuana cessation reinforced. Psychiatry consulted , upon questioning, reports depression, denies suicidal or homicidal ideation.Close monitoring electrolytes with repeat labs ordered for a.m. Significant clinical improvement. CIWA score remains at 0. Echo reports preserved LV function. Tmax 100.1, WBC WNL. Hemoglobin 11.2, platelets 387, electrolytes and renal function stable. Denies cough, congestion or chills. Denies chest pain, palpitations or shortness of breath. Maintaining O2 sats in the high 90s on room air. Patient has been cleared by cardiology for discharge. Patient will be discharged home today in a stable condition with guarded prognosis pending evaluation and recommendations per psychiatry.Alcohol abstinence and smoking/vaping/marijuana cessation reinforced. The impression and plan of care has been dictated as directed. : I performed a history and examination of this patient, discussed the same with the dictator. I agree with the dictator's note ,documented as a scribe. Any additional findings or plans will be noted. Patient Condition at Discharge: Stable Plan - Discharge Summary Discharge Rx Participant: No New Discharge Prescriptions: New Apixaban Initiation Dose--VTE [Eliquis Initiation Dosing for VTE Treatment] 10 mg PO BID tab Famotidine [Pepcid] 20 mg PO DAILY #30 tablet No Action Apixaban [Eliquis] 5 mg PO BID #60 tab Discharge Medication List Apixaban [Eliquis] 5 mg PO BID #60 tab 11/29/23 [Rx] Apixaban Initiation Dose--VTE [Eliquis Initiation Dosing for VTE Treatment] 10 mg PO BID tab 12/02/23 [Rx] Famotidine [Pepcid] 20 mg PO DAILY #30 tablet 12/02/23 [Rx] Follow up Appointment(s)/Referral(s): Rickey Marinelli [STAFF PHYSICIAN] - 2 Weeks Lu Becker MD [STAFF PHYSICIAN] - 3 Weeks Chandu Murphy Jr, DO [Primary Care Provider] - 3 Days Activity/Diet/Wound Care/Special Instructions: *Eliquis 10 mg p.o. twice daily x 6 more days then 5 mg p.o. twice daily.* Discharge/Stand Alone Forms: AA [facility], Outpatient Counseling, In Substance Abuse Facilities
--- NOTE | 2023-12-02 14:08 | P.CN ---
Psychiatric Consult - . Consult date: 12/02/23 Consult:: 12/02/23 13:36 IDENTIFYING DATA: This patient is a 28-year-old male, has no kids, lives with his in a house, he works as a semiconductor processing technician REASON FOR REFERRAL: Psychiatry was consulted for "depression" HISTORY OF PRESENT ILLNESS: The patient presented to the hospital initially on 11/29 for a DVT currently on blood thinners, he had on and off chest pain, he was found to have a acute vein thrombosis, in his lower extremities. CT scan of his brain is negative. Nurse taking care of patient did not report any significant issues with him, he has not been reporting any depression or any suicidal thoughts. He is currently on CIRI protocol with as needed Ativan. Patient was seen laying in bed today agreeable to speak to chart writer. He states that he is doing a bit better today with regards to his mood and overall the anxiety. He claims that he is feeling better physically, since being in the hospital. He states that he came initially with the right leg soreness however that was increasing then he began having other leg swelling, claims that he collapsed at home. States that he his called the paramedics and he broke up brought him to the hospital. States that he is feeling better now. Claims that he did have some relationship stressors with his , also finances as well. States that he used to see a counselor found that helpful. Has not been on any psychiatric medications in the past. States that he has been having on and off depression for about 7 years now chronically. Claims that he is not having much depression now. States that his sleep has been on and off, appetite has been fair. At this time patient denies any current suicidal or homical ideations, intent or plan. Patient denies any auditory, visual hallucinations and denies any paranoia or delusions. Patients admits to using marijuana occasionally, states that he drinks alcohol about 1 or 2 drinks every other day, states that he used to drink heavier in the past however has cut back. Denies any current withdrawal symptoms or any history of DTs or seizures. Denies any other recreational drug use. PAST PSYCHIATRIC HISTORY: Patient has a a history of depression anxiety and alcohol use. Patient denies being on any psychiatric medications. Patient denies any previous psychiatric hospitalizations. Patient denies any psychiatric outpatient follow-up. Patient denies any history of suicide attempts in the past. PAST MEDICAL HISTORY: Past Medical History: Deep Vein Thrombosis (DVT) History of Any Multi-Drug Resistant Organisms: None Reported Past Surgical History: No Surgical Hx Reported Past Psychological History: No Psychological Hx Reported Smoking Status: Current every day smoker, Vaper Past Alcohol Use History: Daily, Occasional Past Drug Use History: Marijuana ALLERGIES: as per EMR. CHEMICAL DEPENDENCY HISTORY: as per HPI. FAMILY PSYCHIATRIC/SUBSTANCE USE HISTORY: Denies SOCIAL HISTORY: Patient was born and raised in [facility], claims that he completed high school, states that he does not have any legal history. Does not have any kids, he lives with his in a house, he works as a data processor. MENTAL STATUS EXAM: General Appearance: Patient appears to be stated age is alert, pleasant, and attempts to be cooperative. Patient appears to have fair hygiene and grooming wearing hospital gown with fair eye contact. Behavior: Patient is calmly lying in bed without any agitated behavior. Attempts to cooperate Speech: Patient's speech is fluent and nonpressured. Mood/Affect: Patient reports their mood is "better now", affect is congruent Suicidality/Homicidality: Patient denies having any suicidal or homicidal ideation intent or plan. Perceptions: Patient denies any visual hallucinations and denies any auditory hallucinations Though content/process: There is no evidence of any delusional thought content and thought process is linear and goal-directed. Memory and concentration: AOX3, grossly intact for the purposes of this session. Can spell "WORLD" backwards Judgment and insight: Fair IMPRESSIONS: Alcohol use disorder History of depressive disorder and anxiety PLAN: -At this time patient DOES NOT meet criteria for inpatient psychiatric admission. -Would recommend the following medication changes/additions: Spoke with patient about antidepressants and different options for treatment for depression however patient opted not to take any medications for depression and anxiety, states that he benefited more from counseling and would prefer to do that as an outpatient. Patient was interested in trying naltrexone daily for alcohol cravings, start 50 mg p.o. daily. -CIWA protocol with PRN Ativan for alcohol withdrawal. Continue to monitor vital signs. -sorting cows worker to provide patient with outpatient mental health/psychiatry resources for appropriate follow up upon discharge -Hogshead Liner spoke with patient about substance abuse and the harmful effects on medical and mental health, patient verbally understood and agreed. -sorting cows worker to provide patient substance use treatment resources including AA/NA meetings in the community. -Communicated plan to patient's nurse -Psychiatry will sign off at this time -Please contact with any questions. 12/02/23 14:02
[2023-12-02] MEDS: NALTREXONE HCL 50 MG TAB PO SCH (14:30)
[2023-12-02] MEDS: PANTOPRAZOLE 40 MG/10 ML VIAL IVP SCH (14:31)
--- NOTE | 2023-12-02 15:05 | P.PN ---
Subjective Progress Note Date: 12/02/23 Reason for Consult (text): Syncope History of present illness: This is a 28-year-old male previously seen by Dr. Barron with past medical history of alcohol abuse, borderline hypertension, syncope x 2, family history of MTHFR. We have been asked to evaluate the patient for syncope. Patient presented to the emergency center initially on 11/28 for left calf pain and had been previously diagnosed with superficial blood clot in his right calf and been diagnosed with a superficial blood clot in the left calf. Patient gives history that 2 weeks ago he had pain in the right calf and then a few days ago the left calf started hurting. He states he is never had the problem before. Yesterday he apparently was waiting for his to come home and have been home about 30 minutes. He did have some alcohol intake of a couple drinks a passing out e pisode when he was leaving the bathroom. He states he thinks he was out for about 15 minutes and woke up to his and EMS standing over him. He denies having any chest pain no shortness of breath no palpitations, no PND, no cough no fever. He thinks that sometimes his electrolytes are off and he has felt better since those have been replaced. He is normally very active. He denies any recent trauma to his legs and denies any significant sedentary activities. He was started on started on Eliquis on 11/28 by the ER physician for superficial vein thrombosis. Patient took 1 tablet that day and 1 the following day. Regarding MTHFR gene mutation. He states his grandmother had it and his father is a carrier. Blood pressure 113/88, heart rate 115, pulse ox 97% on room air. Patient is status post 1 L of IV fluids, started on antibiotics, magnesium and potassium replaced. Patient vapes. He states his last alcohol intake was a couple drinks yesterday. He states that he drinks only occasionally but in the past was drinking every day. Patient is currently on a heparin drip as well. Patient is seen today in the emergency center waiting for bed on the cardiac stepdown unit. EKG: Sinus tachycardia at 116 bpm Chest x-ray: No acute cardiopulmonary disease Venous Doppler duplex bilateral lower extremity positive for DVT bilaterally CAT scan of the brain showed no acute intracranial process. CTA of the chest: Left lower lobe pulmonary embolus leading to area of suspected pulmonary infarct. Also noted congenital absence of the left kidney, severe hepatic steatosis. Laboratory studies: WBC 10, hemoglobin 10.8, platelet count 451. D-dimer 4.95. Troponin negative x 1. proBNP 46. Calcium 7.4, magnesium 1.3. Potassium 3.1. Home cardiac medications: Eliquis 5 mg twice daily 12/01 Patient denies having any shortness of breath no leg pain. He has minimal left lower extremity edema which is improved. Patient is noted to have some tachycardia today and running in the low 100s, blood pressure 133/91. Repeat blood work reveals hemoglobin 11.2. Creatinine 0.7. Patient is anticipating discharge home later today. Echocardiogram reveals preserved LV function, RV size appears normal, RVSP normal. Physical examination: Gen: This is a 28-year-old man appears to be in no acute distress VS: reviewed HEENT: Head is atraumatic, normocephalic. Pupils equal, round. Sclerae is anicteric. NECK: Supple. No JVD. LUNGS: Clear to auscultation. No wheezes or rhonchi. No intercostal retractions. HEART: Regular rate and rhythm. No murmur. ABDOMEN: Soft No tenderness. EXTREMITIES: Minimal left lower extremity edema, no edema on the right leg. NEUROLOGICAL: Patient is awake, alert and oriented x3. Assessment: Left lower pulmonary embolus Bilateral lower extremity DVT Family history of MTHFR gene mutation Syncopal episode Hypokalemia status post replacement Hypomagnesia status post replacement History of previous syncopal episodes of unclear etiology History of alcohol abuse Vaping Plan: Continue VTE Eliquis protocol Patient is cleared for discharge from cardiology and may follow-up in the office in 1 to 2 weeks. Nurse practitioner note has been reviewed, I agree with documented findings and plan of care. Patient was seen and examined. Objective - Vital Signs Vital signs: Vital Signs Temp 98.7 F 12/02/23 08:00 Pulse 112 H 12/02/23 08:00 Resp 16 12/02/23 08:00 BP 149/91 12/02/23 08:00 Pulse Ox 96 12/02/23 08:00 FiO2 Intake & Output 12/01/23 12/02/23 12/02/23 18:59 06:59 18:59 Intake Total 354 20 130 Balance 354 20 130 Weight 90.718 kg 92.4 kg Intake: IV 20 10 Invasive Line 1 20 10 Oral 354 120 Other: Voiding Method Toilet Toilet # Voids 1 2 - Labs CBC & Chem 7: 12/02/23 08:20 12/02/23 08:20 Labs: Abnormal Lab Results - Last 24 Hours (Table) 12/02/23 12/02/23 Range/Units 08:20 08:20 RBC 3.83 L (4.30-5.90) m/uL Hgb 11.2 L (13.0-17.5) gm/dL Hct 35.5 L (39.0-53.0) % RDW 15.7 H (11.5-15.5) % Lymphocytes # 0.8 L (1.0-4.8) k/uL Sodium 136 L (137-145) mmol/L Carbon Dioxide 21 L (22-30) mmol/L BUN <2 L (9-20) mg/dL Calcium 8.2 L (8.4-10.2) mg/dL Microbiology - Last 24 Hours (Table) 11/30/23 19:48 Blood Culture - Preliminary Blood
== END 2023-12-02 14:49 | disposition home or self-care (01) | DRG 176 ==
LOC: EC 14:25 → 3SCARD 17:43
PROVIDERS: ADMIT Family Medicine; ATTEND Family Medicine
DX: I26.99 Other pulmonary embolism without acute cor pulmonale (principal); I82.433 Acute embolism and thrombosis of popliteal vein, bilateral; Q60.0 Renal agenesis, unilateral; E66.9 Obesity, unspecified; Z68.32 Body mass index [BMI] 32.0-32.9, adult; F32.A Depression, unspecified; F17.290 Nicotine dependence, other tobacco product, uncomplicated; Z79.01 Long term (current) use of anticoagulants; E83.42 Hypomagnesemia; E86.0 Dehydration; E87.6 Hypokalemia; F41.9 Anxiety disorder, unspecified; F10.10 Alcohol abuse, uncomplicated; K76.0 Fatty (change of) liver, not elsewhere classified; Z83.2 Family history of diseases of the blood and blood-forming organs and certain disorders involving the immune mechanism; Z79.899 Other long term (current) drug therapy
CPT/HCPCS: 36415; 70450; 71045; 71046; 71275; 78582; 80048; 80053; 80320; 83735; 83880; 84100; 84443; 84484; 85025; 85379; 85610; 85730; 87040; 93005; 93306; 93970; 94760; 96365; 96366; 96367; 96368; 96375; 99291

== ENCOUNTER 2024-04-04 11:08 | Emergency (ER) | payer OTHER ==
[2024-04-04 11:15] VITALS: BP 144/84; PULSE 95; RESP 16; TEMP 95
--- NOTE | 2024-04-04 11:18 | ED ---
Recheck HPI - General Chief Complaint: Recheck/Abnormal Lab/Rx Stated Complaint: abn labs Time Seen by Provider: 04/04/24 11:12 Source: patient, RN notes reviewed, old records reviewed Mode of arrival: ambulatory Limitations: no limitations - History of Present Illness Initial Comments: This is a 28-year-old male to the ER for evaluation, patient has not been having any significant symptoms s occasional weakness on Eliquis for known PE known DVT patient did have outpatient lab testing showing low hemoglobin, patient is on Eliquis Complaint: abnormal lab (Low hemoglobin) Returns Today for: Called Because of Abnormal Lab/Test (Low hemoglobin) Symptoms Since Prior Visit: no new symptoms Associated Symptoms: none Treatments Prior to Arrival: other - Related Data Previous Rx's Medication Instructions Recorded Apixaban [Eliquis] 5 mg PO BID #60 tab 11/29/23 Allergies Allergy/AdvReac Type Severity Reaction Status Date / Time ketorolac [From Toradol] Allergy Unknown Verified 04/04/24 11:48 Review of Systems ROS Statement: Those systems with pertinent positive or pertinent negative responses have been documented in the HPI. ROS Other: All systems not noted in ROS Statement are negative. Past Medical History Past Medical History: Deep Vein Thrombosis (DVT) History of Any Multi-Drug Resistant Organisms: None Reported Past Surgical History: No Surgical Hx Reported Past Psychological History: No Psychological Hx Reported Smoking Status: Current every day smoker, Vaper Past Alcohol Use History: Daily, Occasional Past Drug Use History: Marijuana General Exam Limitations: no limitations General appearance: alert, in no apparent distress Head exam: Present: atraumatic, normocephalic, normal inspection Eye exam: Present: normal appearance, PERRL, EOMI. Absent: scleral icterus, conjunctival injection, periorbital swelling ENT exam: Present: normal exam, mucous membranes moist Neck exam: Present: normal inspection. Absent: tenderness, meningismus, lymphadenopathy Respiratory exam: Present: normal lung sounds bilaterally. Absent: respiratory distress, wheezes, rales, rhonchi, stridor Cardiovascular Exam: Present: regular rate, normal rhythm, normal heart sounds. Absent: systolic murmur, diastolic murmur, rubs, gallop, clicks GI/Abdominal exam: Present: soft, normal bowel sounds. Absent: distended, tenderness, guarding, rebound, rigid Extremities exam: Present: normal inspection, full ROM, normal capillary refill. Absent: tenderness, pedal edema, joint swelling, calf tenderness Back exam: Present: normal inspection Neurological exam: Present: alert, oriented X3, CN II-XII intact Psychiatric exam: Present: normal affect, normal mood Skin exam: Present: warm, dry, intact, normal color. Absent: rash Course Vital Signs 04/04/24 11:10 Temperature 95 F L Pulse Rate 95 Respiratory 16 Rate Blood Pressure 144/84 O2 Sat by Pulse 100 Oximetry - Reevaluation(s) Reevaluation #1: 04/04/24 14:17 Medical records reviewed Reevaluation #2: 04/04/24 14:17 Patient feels well here in the ER no significant bloody bowel movements or output Reevaluation #3: 04/04/24 14:17 Patient informed of results and questions answered Reevaluation #4: Was pt. sent in by a medical professional or institution (, PA, ASSISTANT PRESS OPERATOR, urgent care, hospital, or group home...) When possible be specific @ -no Did you speak to anyone other than the patient for history (EMS, parent, family, police, friend...)? What history was obtained from this source @ -no Did you review nursing and triage notes (agree or disagree)? Why? @ -agree Are old charts reviewed (outside hosp., previous admission, EMS record, old EKG, old radiological studies, urgent care reports/EKG's, group home records)? Report findings @ -yes Differential Diagnosis (chest pain, altered mental status, abdominal pain women, abdominal pain men, vaginal bleeding, weakness, fever, dyspnea, syncope, headache, dizziness, GI bleed, back pain, seizure, CVA, palpatations, mental health, musculoskeletal)? @ -prior EKG interpreted by me (3pts min.). @ -yes X-rays interpreted by me (1pt min.). @ -no CT interpreted by me (1pt min.). @ -no U/S interpreted by me (1pt. min.). @ -no What testing was considered but not performed or refused? (CT, X-rays, U/S, l abs)? Why? @ -none What meds were considered but not given or refused? Why? @ -none Did you discuss the management of the patient with other professionals (professionals i.e. , PA, ASSISTANT PRESS OPERATOR, lab, RT, psych nurse, social work program coordinator, skiing instructor, teacher, promotion officer, rifle case repairer)? Give summary @ -no Was smoking cessation discussed for >3mins.? @ -no Was critical care preformed (if so, how long)? @ -yes31 Were there social determinants of health that impacted care today? How? (Homelessness, low income, unemployed, alcoholism, drug addiction, transportation, low edu. Level, literacy, decrease access to med. care, detention, rehab)? @ -none Was there de-escalation of care discussed even if they declined (Discuss DNR or withdrawal of care, Hospice)? DNR status @ -no What co-morbidities impacted this encounter? (DM, HTN, Smoking, COPD, CAD, Cancer, CVA, ARF, Chemo, Hep., AIDS, mental health diagnosis, sleep apnea, morbid obesity)? @ -none Was patient admitted / discharged? Hospital course, mention meds given and route, prescriptions, significant lab abnormalities, going to OR and other pertinent info. @ - 28 male with coagulopathy, on Eliquis low hemoglobin with worsening hemoglobin, patient is on Eliquis for DVT PE patient will be transferred for lower GI bleed Transferred to [facility] Undiagnosed new problem with uncertain prognosis? @ -no Drug Therapy requiring intensive monitoring for toxicity (Heparin, Nitro, Insulin, Cardizem)? @ -no Were any procedures done? @ -no Diagnosis/symptom? @ -Lower GI bleed on Eliquis Acute, or Chronic, or Acute on Chronic? @ -Acute Uncomplicated (without systemic symptoms) or Complicated (systemic symptoms)? @ -Complicated Side effects of treatment? @ -no Exacerbation, Progression, or Severe Exacerbation? @ -exacerbation Poses a threat to life or bodily function? How? (Chest pain, USA, AR, pneumonia, PE, COPD, DKA, ARF, appy, cholecystitis, CVA, Diverticulitis, Homicidal, Suicidal, threat to staff... and all critical care pts) @ -yes significant GI bleed with anemia Reevaluation #5: Differential Weakness: Hypoglycemia, shock, sepsis, hyponatremia, anemia, infection, AR, ETOH, adverse medicine reaction, overdose, stroke, this is not meant to be an all-inclusive list. Differential GI Bleed: Esophageal varices, aortoenteric fistula, Alana-Spencer, gastritis, peptic ulcer disease, diverticulosis, inflammatory bowel disease, hemorrhoids, fissure, colitis, malignancy, Meckel's diverticulum, this is not meant to be an all- inclusive list. - Consultations Consultation #1: Spoke with [facility] regarding transfer they are agreeable to accept Medical Decision Making - Medical Decision Making 28 male with coagulopathy, on Eliquis low hemoglobin with worsening hemoglobin, patient is on Eliquis for DVT PE patient will be transferred for lower GI bleed - Lab Data Result diagrams: 04/04/24 11:43 04/04/24 11:43 Lab Results 04/04/24 04/04/24 04/04/24 Range/Units 11:30 11:40 11:43 WBC 11.3 H (3.8-10.6) k/uL RBC 3.82 L (4.30-5.90) m/uL Hgb 8.0 L (13.0-17.5) gm/dL Hct 27.0 L (39.0-53.0) % MCV 70.5 L (80.0-100.0) fL MCH 20.9 L (25.0-35.0) pg MCHC 29.6 L (31.0-37.0) g/dL RDW 13.5 (11.5-15.5) % Plt Count 482 H (150-450) k/uL MPV 7.6 Neutrophils % 65 % Lymphocytes % 23 % Monocytes % 4 % Eosinophils % 5 % Basophils % 0 % Neutrophils # 7.3 (1.3-7.7) k/uL Lymphocytes # 2.6 (1.0-4.8) k/uL Monocytes # 0.5 (0-1.0) k/uL Eosinophils # 0.6 (0-0.7) k/uL Basophils # 0.1 (0-0.2) k/uL Hypochromasia Marked Poikilocytosis Slight Microcytosis Moderate PT (10.0-12.5) sec INR (<1.2) APTT (22.0-30.0) sec Sodium (137-145) mmol/L Potassium (3.5-5.1) mmol/L Chloride (98-107) mmol/L Carbon Dioxide (22-30) mmol/L Anion Gap mmol/L BUN (9-20) mg/dL Creatinine (0.66-1.25) mg/dL Est GFR (CKD-EPI)AfAm (>60 ml/min/1.73 sqM) Est GFR (CKD-EPI)NonAf (>60 ml/min/1.73 sqM) Glucose (74-99) mg/dL Lactic Ac Sepsis Rflx Plasma Lactic Acid Nicko (0.7-2.0) mmol/L Calcium (8.4-10.2) mg/dL Magnesium (1.6-2.3) mg/dL Total Bilirubin (0.2-1.3) mg/dL AST (17-59) U/L ALT (4-49) U/L Alkaline Phosphatase (38-126) U/L Ammonia (<30) umol/L Troponin I (0.000-0.034) ng/mL Total Protein (6.3-8.2) g/dL Albumin (3.5-5.0) g/dL Lipase (23-300) U/L Serum Alcohol mg/dL Blood Type O Positive Blood Type Confirm O Positive Blood Type Recheck No Previous Record Bld Type Recheck Status CABO Indicated Antibody Screen NEGATIVE Spec Expiration Date 04/07/2024 - 234204/04/24 04/04/24 04/04/24 Range/Units 11:43 11:43 11:43 WBC (3.8-10.6) k/uL RBC (4.30-5.90) m/uL Hgb (13.0-17.5) gm/dL Hct (39.0-53.0) % MCV (80.0-100.0) fL MCH (25.0-35.0) pg MCHC (31.0-37.0) g/dL RDW (11.5-15.5) % Plt Count (150-450) k/uL MPV Neutrophils % % Lymphocytes % % Monocytes % % Eosinophils % % Basophils % % Neutrophils # (1.3-7.7) k/uL Lymphocytes # (1.0-4.8) k/uL Monocytes # (0-1.0) k/uL Eosinophils # (0-0.7) k/uL Basophils # (0-0.2) k/uL Hypochromasia Poikilocytosis Microcytosis PT 10.6 (10.0-12.5) sec INR 0.9 (<1.2) APTT 24.3 (22.0-30.0) sec Sodium 139 (137-145) mmol/L Potassium 3.7 (3.5-5.1) mmol/L Chloride 101 (98-107) mmol/L Carbon Dioxide 22 (22-30) mmol/L Anion Gap 16 mmol/L BUN 7 L (9-20) mg/dL Creatinine 0.99 (0.66-1.25) mg/dL Est GFR (CKD-EPI)AfAm >90 (>60 ml/min/1.73 sqM) Est GFR (CKD-EPI)NonAf >90 (>60 ml/min/1.73 sqM) Glucose 155 H (74-99) mg/dL Lactic Ac Sepsis Rflx Plasma Lactic Acid Nicko 2.2 H* (0.7-2.0) mmol/L Calcium 9.3 (8.4-10.2) mg/dL Magnesium 1.7 (1.6-2.3) mg/dL Total Bilirubin 0.3 (0.2-1.3) mg/dL AST 19 (17-59) U/L ALT 13 (4-49) U/L Alkaline Phosphatase 89 (38-126) U/L Ammonia 24 (<30) umol/L Troponin I (0.000-0.034) ng/mL Total Protein 8.0 (6.3-8.2) g/dL Albumin 4.1 (3.5-5.0) g/dL Lipase 108 (23-300) U/L Serum Alcohol <10 mg/dL Blood Type Blood Type Confirm Blood Type Recheck Bld Type Recheck Status Antibody Screen Spec Expiration Date 04/04/24 04/04/24 04/04/24 Range/Units 11:43 12:26 14:34 WBC (3.8-10.6) k/uL RBC (4.30-5.90) m/uL Hgb (13.0-17.5) gm/dL Hct (39.0-53.0) % MCV (80.0-100.0) fL MCH (25.0-35.0) pg MCHC (31.0-37.0) g/dL RDW (11.5-15.5) % Plt Count (150-450) k/uL MPV Neutrophils % % Lymphocytes % % Monocytes % % Eosinophils % % Basophils % % Neutrophils # (1.3-7.7) k/uL Lymphocytes # (1.0-4.8) k/uL Monocytes # (0-1.0) k/uL Eosinophils # (0-0.7) k/uL Basophils # (0-0.2) k/uL Hypochromasia Poikilocytosis Microcytosis PT (10.0-12.5) sec INR (<1.2) APTT (22.0-30.0) sec Sodium (137-145) mmol/L Potassium (3.5-5.1) mmol/L Chloride (98-107) mmol/L Carbon Dioxide (22-30) mmol/L Anion Gap mmol/L BUN (9-20) mg/dL Creatinine (0.66-1.25) mg/dL Est GFR (CKD-EPI)AfAm (>60 ml/min/1.73 sqM) Est GFR (CKD-EPI)NonAf (>60 ml/min/1.73 sqM) Glucose (74-99) mg/dL Lactic Ac Sepsis Rflx Y Plasma Lactic Acid Nicko 1.2 (0.7-2.0) mmol/L Calcium (8.4-10.2) mg/dL Magnesium (1.6-2.3) mg/dL Total Bilirubin (0.2-1.3) mg/dL AST (17-59) U/L ALT (4-49) U/L Alkaline Phosphatase (38-126) U/L Ammonia (<30) umol/L Troponin I <0.012 (0.000-0.034) ng/mL Total Protein (6.3-8.2) g/dL Albumin (3.5-5.0) g/dL Lipase (23-300) U/L Serum Alcohol mg/dL Blood Type Blood Type Confirm Blood Type Recheck Bld Type Recheck Status Antibody Screen Spec Expiration Date Critical Care Time Critical Care Time: Yes Total Critical Care Time: 31 Disposition Clinical Impression: Lower GI bleed, Anemia, Coagulopathy Disposition: OTHER INSTITUTION NOT DEFINED Condition: Fair Is patient prescribed a controlled substance at d/c from ED?: No Referrals: Chandu Murphy Jr, DO [Primary Care Provider] - 1-2 days Time of Disposition: 15:00 - Out of Hospital Transfer - Req. Specs Out of Hospital Transfer - Requested Specifics: Other Emergency Center ([facility])
[2024-04-04] MEDS: PANTOPRAZOLE 40 MG/10 ML VIAL IVP STA (11:37)
[2024-04-04] MEDS: ONDANSETRON 4 MG/2 ML VIAL IVP STA (11:37)
[2024-04-04] MEDS: SODIUM CHLORIDE 0.9% 1,000 ML IV STA (11:37)
[2024-04-04] MEDS: SODIUM CHLORIDE 0.9% 500 ML 500 ML IV STA (11:37)
[2024-04-04 11:59] LABS: Basophils # (A) 0.1 k/uL (0-0.2); Basophils % (A) 0 %; Eosinophils # (A) 0.6 k/uL (0-0.7); Eosinophils % (A) 5 %; Hypochromasia Marked; Lymphocytes # (A) 2.6 k/uL (1.0-4.8); Lymphocytes % (A) 23 %; MCH 20.9 pg (25.0-35.0); MCHC 29.6 g/dL (31.0-37.0); MCV 70.5 fL (80.0-100.0); Mean Platelet Volume 7.6; Microcytosis Moderate; Monocytes # (A) 0.5 k/uL (0-1.0); Monocytes % (A) 4 %; Neutrophils # (A) 7.3 k/uL (1.3-7.7); Neutrophils % (A) 65 %; Platelet Count 482 k/uL (150-450); Poikilocytosis Slight; RBC 3.82 m/uL (4.30-5.90); RDW 13.5 % (11.5-15.5); WBC 11.3 k/uL (3.8-10.6)
[2024-04-04 12:20] LABS: ALT 13 U/L (4-49); AST 19 U/L (17-59); African American GFR (CKD) >90 (>60 ml/min/1.73 sqM); Albumin 4.1 g/dL (3.5-5.0); Alcohol <10 mg/dL; Alkaline Phosphatase 89 U/L (38-126); Anion Gap 16 mmol/L; Blood Urea Nitrogen 7 mg/dL (9-20); Calcium 9.3 mg/dL (8.4-10.2); Carbon Dioxide 22 mmol/L (22-30); Chloride 101 mmol/L (98-107); Glucose 155 mg/dL (74-99); INR 0.9 (<1.2); Lipase 108 U/L (23-300); Magnesium 1.7 mg/dL (1.6-2.3); Non-African American GFR(CKD) >90 (>60 ml/min/1.73 sqM); Partial Thromboplastin Time 24.3 sec (22.0-30.0); Potassium 3.7 mmol/L (3.5-5.1); Prothrombin Time 10.6 sec (10.0-12.5); Sodium 139 mmol/L (137-145); Total Bilirubin 0.3 mg/dL (0.2-1.3)
[2024-04-04 12:25] LABS: Lactic Acid, Venous 2.2 mmol/L (0.7-2.0)
== END 2024-04-04 15:03 | disposition other institution (70) ==
LOC: EC 11:08
DX: D64.9 Anemia, unspecified (principal); K92.2 Gastrointestinal hemorrhage, unspecified; D68.9 Coagulation defect, unspecified; F17.290 Nicotine dependence, other tobacco product, uncomplicated; Z88.8 Allergy status to other drugs, medicaments and biological substances; Z79.01 Long term (current) use of anticoagulants
CPT/HCPCS: 36415; 86900; 86901; 80053; 82140; 83605; 83690; 83735; 84484; 85025; 85610; 85730; 86850; 99291; 96374; 96375; 96361 ×3; G0480; J2405; J2470; 80320

== ENCOUNTER → 2024-04-09 | Outpatient (CLI) | payer OTHER | END | disposition home or self-care (01) | LOC: LABWHC1 15:15 | PROVIDERS: ATTEND Family Medicine | DX: D68.9 Coagulation defect, unspecified (principal); D50.9 Iron deficiency anemia, unspecified; K92.2 Gastrointestinal hemorrhage, unspecified; K51.819 Other ulcerative colitis with unspecified complications | CPT/HCPCS: 36415; 81241 ==

== ENCOUNTER → 2024-05-14 | Outpatient (CLI) | payer OTHER ==
--- NOTE | 2024-05-14 11:08 | US ---
EXAMINATION TYPE: US venous doppler duplex LE BI DATE OF EXAM: 05/14/2024 10:56 AM COMPARISON: Multiple US's including most recent December 01, 2023 CLINICAL INDICATION: Male, 28 years old with history of I82.5Z9 DVT; F/U prior DVT in both legs, pt s tates he is currently on blood thinners, Pain TECHNIQUE: The lower extremity deep venous system is examined utilizing real time linear array sonog asia with graded compression, color doppler sonography, and spectral doppler. SIDE PERFORMED: Bilateral FINDINGS: VESSELS IMAGED: Common Femoral Vein Deep Femoral Vein Greater Saphenous Vein * Femoral Vein Popliteal Vein Small Saphenous Vein * Proximal Calf Veins (* superficial vessels) Right Leg: Negative for DVT, Color Doppler imaging shows patency of the vessels. Spectral waveforms are within normal limits. Prior thrombus within small saph and popliteal junction appears to have re solved. Left Leg: Negative for DVT, Color Doppler imaging shows patency of the vessels. Spectral waveforms a re within normal limits. Prior thrombus visualized within calf appears to have resolved. IMPRESSION: No ultrasound evidence for acute deep venous thrombosis on current study. [facility], , 05/14/2024 11:06 AM
== END | disposition home or self-care (01) ==
LOC: RADUSWWP 10:26
PROVIDERS: ATTEND Internal Medicine Hematology & Oncology
DX: I82.5Z9 Chronic embolism and thrombosis of unspecified deep veins of unspecified distal lower extremity (principal); I26.99 Other pulmonary embolism without acute cor pulmonale; F10.120 Alcohol abuse with intoxication, uncomplicated
CPT/HCPCS: 93970

== ENCOUNTER → 2024-06-11 | Outpatient (CLI) | payer OTHER ==
[2024-06-11 13:52] LABS: HGB 8.9 g/dL (13.0-17.0); MCH 19.9 pg (27.0-32.0); MCHC 28.7 g/dL (32.0-37.0); MCV 69.2 fL (80.0-97.0); Mean Platelet Volume 11.5 fL (9.5-12.2); Platelet Count 463 10*3/uL (140-440); RBC 4.48 10*6/uL (4.40-5.60); RDW 19.7 % (11.5-14.5); WBC 9.31 10*3/uL (4.50-10.00)
[2024-06-11 15:57] LABS: Eosinophils # (M) 1.12 k/uL (0-0.7); Lymphocytes # (M) 3.44 k/uL (1.0-4.8); Monocytes # (M) 0.47 k/uL (0-1.0); Neutrophils # (M) 4.28 k/uL (1.3-7.7); Neutrophils % (M) 46 %; Nucleated Red Blood Cells 0 /100 WBC (0-0); Total Cells Counted 100
== END | disposition home or self-care (01) ==
LOC: LABWHC1 12:29
PROVIDERS: ATTEND Family Medicine
DX: D64.9 Anemia, unspecified (principal)
CPT/HCPCS: 36415; 85025